=== PATIENT | female | born 1955 | race Caucasian/White ===

== ENCOUNTER 2024-06-15 16:52 | Outpatient (OUT) | payer MEDICARE, BC, SELFPAY ==
--- NOTE | 2024-06-15 17:07 | US_ITS ---
The [place] [id number] Patient Name: MELIDA LIVINGSTON MRN: [id number] date: 1955 Sex: F Assigned Patient Location: [facility] Current Patient Location: Accession/Order Number: [id number] Exam Date: 06/15/2024 17:10 Report Date: 06/16/2024 05:06 At the request of: CARISSA GUTHRIE Procedure: US venous doppler LE LT EXAMINATION: US venous doppler LE LT HISTORY: LEFT LEG PAIN M79.605 COMPARISON: No relevant comparison available. FINDINGS: REGION: Left lower extremity THROMBI: None. COMPRESSIBILITY: Normal compressibility. FLOW: Normal waveform and antegrade flow between 5 and 20 cm/s. OTHER: None. US/US venous doppler LE LT IMPRESSION: 1. No deep vein thrombus within the left lower extremity. Electronically authenticated by: ANTWON YOUNGBLOOD Date: 06/16/2024 05:06
== END 2024-06-15 16:53 | disposition home or self-care (01) ==
PROVIDERS: PCP Nurse Practitioner Family; Visit Provider Nurse Practitioner Family
DX: M79.605 Pain in left leg (principal)
CPT/HCPCS: 93971

== ENCOUNTER 2024-07-11 15:36 | Outpatient (OUT) | payer MEDICARE, BC, SELFPAY ==
--- NOTE | 2024-07-11 15:39 | XR_ITS ---
The [address] [address] Patient Name: MELIDA LIVINGSTON MRN: [id number] date: 1955 Sex: F Assigned Patient Location: [facility] Current Patient Location: Accession/Order Number: [id number] Exam Date: 07/11/2024 15:41 Report Date: 07/12/2024 05:56 At the request of: CARISSA GUTHRIE Procedure: XR foot LT 2V PROCEDURE: XR foot LT 2V HISTORY: Arthritis COMPARISON: None. FINDINGS: BONES:Mild narrowing of the joint space of the first and 5th metatarsophalangeal joints. Mild degenerative enthesopathic spurring of the calcaneus. No fracture or dislocation. SOFT TISSUES:No visible soft tissue swelling. EFFUSION:None visible. OTHER: Negative. XR/XR foot LT 2V IMPRESSION: 1. Mild degenerative changes favoring osteoarthritis. Electronically authenticated by: ANTWON YOUNGBLOOD Date: 07/12/2024 05:56
--- OUTSIDE RECORDS SUMMARY | 2024-07-11 15:41 | XMS_ITS | CCD ---
Author Organization [facility] Inform ion Partnership [facility] Care Team Providers Care Laborer Yard Name Role Phone REQUEST, NONE LISTED Primary Care Unavailable ERIBERTO HOBSON Admitting Unavailable ERIBERTO HOBSON Attending Unavailable IZA CASTRO V Consulting Unavailable TEMO PRIEST Consulting Unavailable ERIBERTO HOBSON Consulting Unavailable Pamela Contreras Unavailable Allergies Allergy Classification Reported Allergen(s) Allergy Type Date of Onset Reaction(s) Facility (1 source) Ibuprofen Drug Allergy 04-16-2016 [facility] Repository Medications Current Medications Medication Drug Class(es) Dates Sig (Normalized) Sig (Original) [id number] 200 actuat albuterol 0.09 mg/actuat metered dose inhaler (1 source) beta2-Adrenergic Agonist Start: 10-01-2021 take 2 puff(s) by inhalation four times daily as needed Albuterol Sulfate HFA 108 (90 Base) MCG/ACT 2 puffs Inhalation qid prn Sep, Active azithromycin 250 mg oral tablet (1 source) Macrolide Antimicrobial Start: 10-01-2021 Zithromax 250 MG 2 tablet on the first day, then 1 tablet daily for 4 days Orally Once a day for 5 day(s) Sep, Active Hydrochlorothiazide -25 mg 25 MG (1 source) Start: 10-01-2021 take 1 tablet by mouth once daily in the morning Hydrochlorothiaz jovita-25 mg 25 MG 1 tablet in the morning Orally Once a day for 30 day(s) Sep, Active lisinopril 10 mg oral tablet (1 source) Angiotensin Converting Enzyme Inhibitor Start: 10-01-2021 take 1 tablet by mouth every twenty-four hours Lisinopril 10 MG 1 tablet Orally Once a day for 30 day(s) Sep, Active 24 hr metoprolol succinate 25 mg extended release oral tablet (1 source) beta-Adrenergic Marlin Start: 10-01-2021 take 1 tablet by mouth every twenty-four hours Metoprolol Succinate ER 25 MG 1 tablet Orally Once a day for 30 day(s) Sep, Active predniSONE 20 mg oral tablet (1 source) Start: 10-01-2021 take 1 tablet by mouth every twelve hours predniSONE 20 MG 1 tablet Orally bid for 5 day(s) Sep, Active Problems Active Problems Problem Classification Problem Date Documented Da te Episodic/Chronic Abdominal pain (5 sources) Epigastric pain; Translations: [Left upper quadrant pain] Onset: 10-28-2018 Episodic Cancer of colon (1 source) Personal history of other malignant neoplasm of large intestine; Translations: [PERS HX OTH MALIG NEOPLSM LG INTEST] Onset: 11-01-2018 Episodic Nausea and vomiting (1 source) Nausea with vomiting, unspecified; Translations: [NAUSEA WITH VOMITING UNSPECIFIED] Onset: 11-01-2018 Episodic Other nutritional; endocrine; and metabolic disorders (1 source) Obesity; Translations: [Obesity, unspecified] Chronic Other nutritional; endocrine; and metabolic disorders (1 source) Obese class II; Translations: [Body mass index (BMI) 36.0-36.9, adult] Chronic Residual codes; unclassified (1 source) Acquired absence of other specified parts of digestive tract; Translations: [ACQ ABSENCE OTH PART DIGESTV TRACT] Onset: 11-01-2018 Episodic Residual codes; unclassified (1 source) Acquired absence of both cervix and uterus; Translations: [ACQUIRED ABSENCE BOTH CERVIX AND UTERUS] Onset: 11-01-2018 Episodic Substance-related disorders (1 source) Nicotine dependence, cigarettes, uncomplicated; Translations: [NICOTINE DEPEND CIGARETTES UNCOMP] Onset: 11-01-2018 Chronic Thyroid disorders (1 source) Non-toxic nodular goiter; Translations: [Nontoxic goiter, unspecified] Chronic Past or Other Problems Problem Classification Problem Date Documented Da te Episodic/Chronic Immunizations and screening for infectious disease (1 source) Contact with and (suspected) exposure to other viral communicable diseases Onset: 10-01-2021 Resolved: 10-01-2021 Episodic Other circulatory disease (1 source) Personal history of other diseases of the circulatory system Onset: 10-01-2021 Resolved: 10-01-2021 Episodic Other screening for suspected conditions (not mental disorders or infectious disease) (1 source) Thyroid function tests abnormal; Translations: [Abnormal results of thyroid function studies] Episodic Viral infection (1 source) COVID-19 Onset: 10-01-2021 Resolved: 10-01-2021 Results Test Name Value Interpretation Reference Range Facil itmian CARDIAC SYD ADMITon 019 CK enzyme act/vol 63 U/L Normal 30-135 [facility] Comment on above: Performed By: #### L IPA, CMP, CMADM #### [facility] [address] [id number] Atulharshad Paulino CK.MB mass conc 1.37 ng/mL Normal <=2.37 [facility] Comment on above: Performed By: #### L IPA, CMP, CMADM #### [facility] [address] [id number] Atul Lora INR Coag RelTime (Bld) SEE BELOW Normal [facility] Comment on above: Result Comment: <0.0 34 ng/ml NEGATIVE 0.034-0.119 INDETERMINATE 0.120 AMI CUT OFF Performed By: #### L IPA, CMP, CMADM #### [facility] [address] [address] Atul Lora NEELAM 36.0 ng/mL Normal <=61.5 [facility] Comment on above: Performed By: #### L IPA, CMP, CMADM #### [facility] [address] [id number] Atul Lora TROP <0.017 Normal <=0.034 [facility] Comment on above: Performed By: #### L IPA, CMP, CMADM #### [facility] [address] [id number] Atul Lora CBC AUTO DIFFon 10-28-2018 Basophils #/vol (Bld) 0.0 103/ul Normal 0.0-0.1 [facility] Comment on above: Performed By: #### C BC #### [facility] [address] [id number] Atul Lora Basophils/100 WBC (Bld) 0.1 % Critically low 0.2-2.0 [facility] Comment on above: Performed By: #### C BC #### [facility] [address] [address] Atul Lora Eosinophils #/vol (Bld) 0.0 103/ul Normal 0.0-0.7 [facility] Comment on above: Performed By: #### C BC #### [facility] [address] [address] Atul Paulino Eosinophils/100 WBC (Bld) 0.1 % Critically low 0.9-7.0 [facility] Comment on above: Performed By: #### C BC #### [facility] [address] [address] Atulharshad Paulino Erythrocyte distribution width Ratio (RBC) 12.5 % Normal 11.0-15.0 [facility] Comment on above: Performed By: #### C BC #### [facility] [address] [address] Atul Paulino Hematocrit Volume Fraction (Bld) 45.7 % Normal 36.0-48.0 [facility] Comment on above: Performed By: #### C BC #### [facility] [address] [address] Atulharshad Paulino Hemoglobin mass conc (Bld) 16.0 g/dL Normal 12.0-16.0 [facility] Comment on above: Performed By: #### C BC #### [facility] [address] [address] Atul Lora IG # 0.05 10e3/ul Critically high 0.00-0.03 [facility] Comment on above: Performed By: #### C BC #### [facility] [address] [address] Atul Lora IG % 0.3 % Normal 0.0-0.5 [facility] Comment on above: Performed By: #### C BC #### [facility] [address] [address] Atul Lora Lymphocytes #/vol (Bld) 1.3 103/ul Normal 1.2-3.8 [facility] Comment on above: Performed By: #### C BC #### [facility] [address] [id number] Atul Paulino Lymphocytes/100 WBC (Bld) 8.7 % Critically low 20.5-60.0 [facility] Comment on above: Performed By: #### C BC #### [facility] [address] [id number] Atul Paulino MANUAL DIFF REQ NO Normal [facility] Comment on above: Performed By: #### C BC #### [facility] [address] [address] Atul Paulino MCH Entitic mass (RBC) 30.6 pg Normal 26.7-34.0 [facility] Comment on above: Performed By: #### C BC #### [facility] [address] [place] [address] Atul Paulino MCHC mass conc (RBC) 35.0 g/dL Normal 29.9-35.2 [facility] Comment on above: Performed By: #### C BC #### [facility] [address] [place] [address] Atul Paulino MCV Entitic volume (RBC) 87.4 fL Normal 81.0-99.0 [facility] Comment on above: Performed By: #### C BC #### [facility] [address] [place] [address] Atul Paulino Monocytes #/vol (Bld) 0.6 103/ul Normal 0.3-0.8 [facility] Comment on above: Performed By: #### C BC #### [facility] [address] [place] [address] Atul Paulino Monocytes/100 WBC (Bld) 4.2 % Normal 1.7-12.0 [facility] Comment on above: Performed By: #### C BC #### [facility] [address] [place], [place] [id number] Atul Lora Neutrophils #/vol (Bld) 13.1 103/ul Critically high 1.4-6.5 [facility] Comment on above: Performed By: #### C BC #### [facility] [address] [place] [address] Atul Paulino Neutrophils/100 WBC (Bld) 86.6 % Critically high 43.0-75.0 [facility] Comment on above: Performed By: #### C BC #### [facility] [address] [place], [place] [id number] Atul Paulino Platelet mean volume Entitic volume (Bld) 8.9 fL Critically low 9.5-13.5 [facility] Comment on above: Performed By: #### C BC #### [facility] [address] [place] [address] Atul Paulino Platelets #/vol (Bld) 384 103/ul Normal 150-450 [facility] Comment on above: Performed By: #### C BC #### [facility] [address] [place] [address] Atul Paulino RBC #/vol (Bld) 5.23 106/ul Normal 4.20-5.40 [facility] Comment on above: Performed By: #### C BC #### [facility] [address] [place] [address] Atul Paulino WBC #/vol (Bld) 15.1 103/ul Critically high 4.0-11.0 [facility] Comment on above: Performed By: #### C BC #### [facility] [address] [place], [place] [id number] Atul Paulino ER URINE PROFILEon 9 Bilirubin mass conc Negative Normal NEGATIVE [facility] Comment on above: Performed By: #### ARMOND WELSH #### [facility] [address] [place], [place] [id number] Atul Paulino BLOOD LARGE Normal NEGATIVE [facility] Comment on above: Performed By: #### ARMOND WELSH #### [facility] [address] [place], [place] [id number] Atul Paulino Clarity Nom (U) CLEAR Normal [facility] Comment on above: Performed By: #### DAYAN WELSHRO #### [facility] [address] [place], [place] [phone] Atulharshad Maravillaen Color Nom (U) YELLOW Normal YELLOW [facility] Comment on above: Performed By: #### ARMOND WELSH #### [facility] [address] [place] [address] Atul Lora ERUAHD A micrscopic examination will be performed if indicated. Normal [facility] Comment on above: Performed By: #### ARMOND WELSH #### [facility] [address] [place] [address] Atul Lora Glucose mass conc Negative Normal NEGATIVE [facility] Comment on above: Performed By: #### ARMOND WELSH #### [facility] [address] [place] [address] Atul Lora Ketones Ql (U) TRACE Normal NEGATIVE [facility] Comment on above: Performed By: #### ARMOND WELSH #### [facility] [address] [place] [address] Atul Lora Nitrite Ql (U) Negative Normal NEGATIVE [facility] Comment on above: Performed By: #### ARMOND WELSH #### [facility] [address] [place] [address] Atul Lora pH (Bld) 5.5 Normal 5-9 [facility] Comment on above: Performed By: #### ARMOND WELSH #### [facility] [address] [place] [address] Atul Lora Protein mass conc (U) 30 mg/dL Normal [facility] Comment on above: Performed By: #### ARMOND WELSH #### [facility] [address] [place] [address] Atul Lora SPEC GRAVITY >=1.030 Normal 1.005-<=1.025 [facility] Comment on above: Performed By: #### ARMOND WELSH #### [facility] [address] [place] [address] Atul Lora UR MICRO IND INDICATED Normal [facility] Comment on above: Performed By: #### ARMOND WELSH #### [facility] [address] [place], [place] [id number] Atul Paulino Urobilinogen Qn (U) 0.2 EU/dl Normal [facility] Comment on above: Performed By: #### ARMOND WELSH #### [facility] [address] [place], [place] [id number] Atul Paulino WBC #/vol (Bld) Negative Normal NEGATIVE [facility] Comment on above: Performed By: #### ARMOND WELSH #### [facility] [address] [id number] Atul Paulino LACTATE/LACTIC ACIDon 2018 Lactate molar conc 1.4 mmol/L Normal 0.7-2.1 [facility] Comment on above: Performed By: #### L ACT #### [facility] [address] [place] [address] Atul Paulino LIPASEon 10-28-2018 Lipase enzyme act/vol 101.0 U/L Normal 23.0-300.0 [facility] Comment on above: Performed By: #### L IPA, CMP, CMADM #### [facility] [address] [place] [address] Atul Paulino PROF 14(COMP METB)on 019 Albumin mass conc 4.2 g/dL Normal 3.5-5.0 [facility] Comment on above: Performed By: #### L IPA, CMP, CMADM #### [facility] [address] [place], [place] [id number] Atul Maravillaen Albumin/Globulin mass ratio 1.0 {ratio} Normal [facility] Comment on above: Performed By: #### L IPA, CMP, CMADM #### [facility] [address] [id number] Atul Lora ALP enzyme act/vol 235 U/L Critically high 38-126 [facility] Comment on above: Performed By: #### L IPA, CMP, CMADM #### [facility] [address] [place] [address] Atulharshad Paulino ALT enzyme act/vol 40 U/L Normal 9-52 [facility] Comment on above: Performed By: #### L IPA, CMP, CMADM #### [facility] [address] [address] Atul Lora Anion gap molar conc 17.1 mmol/L Normal [facility] Comment on above: Performed By: #### L IPA, CMP, CMADM #### [facility] [address] [address] Atul Lora AST enzyme act/vol 17 U/L Normal 14-36 [facility] Comment on above: Performed By: #### L IPA, CMP, CMADM #### [facility] [address] [address] Atul Lora Bilirubin Ql (U) 0.4 mg/dL Normal 0.2-1.3 [facility] Comment on above: Performed By: #### L IPA, CMP, CMADM #### [facility] [address] [address] Atul Lora Calcium mass conc 11.4 mg/dL Critically high 8.4-10.2 [facility] Comment on above: Performed By: #### L IPA, CMP, CMADM #### [facility] [address] [address] Atul Lora Chloride molar conc 100 mmol/L Normal 98-107 [facility] Comment on above: Performed By: #### L IPA, CMP, CMADM #### [facility] [address] [address] Atul Lora CO2 molar conc 23.7 mmol/L Normal 22.0-30.0 [facility] Comment on above: Performed By: #### L IPA, CMP, CMADM #### [facility] [address] [address] Atul Lora Creatinine mass conc 0.76 mg/dL Normal 0.52-1.04 [facility] Comment on above: Performed By: #### L IPA, CMP, CMADM #### [facility] [address] [address] Atul Lora EGFR-AF BANGLADESHI >60 Normal >=60 [facility] Comment on above: Performed By: #### L IPA, CMP, CMADM #### [facility] [address] [address] Atul Lora EGFR-NON AF BANGLADESHI >60 Normal >=60 [facility] Comment on above: Performed By: #### L IPA, CMP, CMADM #### [facility] [address] [address] Atul Lora Globulin mass conc (S) 4.3 g/dL Normal [facility] Comment on above: Performed By: #### L IPA, CMP, CMADM #### [facility] [address] [address] Atul Lora Glucose mass conc 177 mg/dL Critically high 74-106 [facility] Comment on above: Performed By: #### L IPA, CMP, CMADM #### [facility] [address] [address] Atul Lora Potassium molar conc 3.8 mmol/L Normal 3.4-5.0 [facility] Comment on above: Performed By: #### L IPA, CMP, CMADM #### [facility] [address] [address] Atul Lora Protein mass conc 8.5 g/dL Critically high 6.1-8.2 [facility] Comment on above: Performed By: #### L IPA, CMP, CMADM #### [facility] [address] [address] Atul Lora Sodium molar conc 137 mmol/L Normal 137-145 [facility] Comment on above: Performed By: #### L IPA, CMP, CMADM #### [facility] [address] [address] Atul Lora Urea nitrogen mass conc 14.0 mg/dL Normal 7.0-17.0 [facility] Comment on above: Performed By: #### L IPA, CMP, CMADM #### [facility] [address] [address] Atul Lora Urea nitrogen/Creatinine mass ratio 18.4 mg/mg Normal [facility] Comment on above: Performed By: #### L IPA, CMP, CMADM #### [facility] [address] [place], [place] [id number] Atul Lora PROTIMEon 10-28-2018 INR Coag RelTime (PPP) 0.95 {INR} Normal [facility] Comment on above: Performed By: #### P TT, PT #### [facility] [address] [place] [address] Atul Lora Prothrombin time (PT) Coag time (PPP) SEE BELOW Normal [facility] Comment on above: Result Comment: PADMINI RED INR: 2.0 - 3.0 CONDITIONS NOT LISTED BELOW 2.5 - 3.5 FOR PROSTHETIC HEART VALVE REPLACEMENT 2.5 - 3.5 RECURRENT THROMBOSIS Performed By: #### P TT, PT #### [facility] [address] [place] [address] Atul Lora Prothrombin time (PT) Coag time (PPP) 9.8 s Normal 9.0-11.6 [facility] Comment on above: Performed By: #### P TT, PT #### [facility] [address] [place] [address] Atul Lora Prothrombin time (PT) Coag time (PPP) PLEASE NOTE: NORMAL RANGE CHANGE 06-29-2014 DUE TO REAGENT LOT CHANGE Normal [facility] Comment on above: Performed By: #### P TT, PT #### [facility] [address] [place] [address] Atul Lora PTTon 10-28-2018 aPTT Coag time (Bld) PLEASE NOTE: NORMAL RANGE CHANGE 09-05-2015 DUE TO REAGENT LOT CHANGE Normal [facility] Comment on above: Performed By: #### P TT, PT #### [facility] [address] [place] [address] Atul Lora aPTT Coag time (Bld) 24.0 s Normal 22.3-36.2 [facility] Comment on above: Performed By: #### P TT, PT #### [facility] [address] [place] [address] Atul Lora URINE MICROSCOPIC ONLYon Bacteria LM.HPF #/area (Urine sed) TRACE Normal NONE SEEN [facility] Comment on above: Performed By: #### ARMOND WELSH #### [facility] [address] [place] [address] Atul Lora CA OX CRYSTALS MANY Normal [facility] Comment on above: Performed By: #### DAYAN WELSHRO #### [facility] [address] [place] [address] Atul Lora CAST NONE SEEN Normal NONE SEEN [facility] Comment on above: Performed By: #### DAYAN WELSHRO #### [facility] [address] [place] [address] Atul Lora Crystals LM Nom (Urine sed) SEEN Normal NONE SEEN [facility] Comment on above: Performed By: #### ARMOND WELSH #### [facility] [address] [place] [address] Atul Lora CULTURE NOT INDICATED Normal [facility] Comment on above: Performed By: #### ARMOND WELSH #### [facility] [address] [place] [address] Atul Lora Epithelial cells LM.HPF #/area (Urine sed) FEW Normal [facility] Comment on above: Performed By: #### ARMOND WELSH #### [facility] [address] [place] [address] Atul Lora MUCOUS NONE SEEN Normal NONE SEEN [facility] Comment on above: Performed By: #### ARMOND WELSH #### [facility] [address] [place] [address] Atul Lora RBC #/vol (U) 0-2 Normal 0-2 [facility] Comment on above: Performed By: #### DAYAN WELSHRO #### [facility] [address] [place] [address] Atul Lora WBC #/vol (Bld) 0-2 Normal NONE SEEN [facility] Comment on above: Performed By: #### ARMOND WELSH #### [facility] [address] [place] [address] Atul Lora XR ABD FLAT UP/PA Blaire 10-28 XR ABD FLAT UP/PA [address] [place] [address] Patient: MELIDA LIVINGSTON Exam Date: 10/28/2018 : 1955 Gender:F Ordering : TAO BURGER Admission #: [id number] Family : DR ERIBERTO HOBSON . Order #: [id number] CLICK HERE TO VIEW EXAM RADIOLOGY REPORT PROCEDURE: RADIOGRAPH ABDOMEN FLAT/UPRIGHT AND PA CHEST COMPARISON: None. INDICATIONS: Acute vomiting, with right and left lower quadrant abdominal pain FINDINGS: LUNGS: Mild right basilar opacity. The left lung is clear MEDIASTINUM: No abnormal widening. BOWEL GAS PATTERN: Scattered air-fluid levels. Paucity of air throughout the bowel FREE AIR: None. CALCIFICATIONS: None significant. BONES: No fracture or visible bone lesion. OTHER: Negative. CONCLUSION: 1. Mild right basilar opacity, atelectasis versus pneumonia 2. Paucity of bowel gas, indeterminate bowel gas pattern Dictated by: Iza Castro M.D. on 10/28/2018 at 18:02 Approved by: Iza Castro M.D. on 10/28/2018 at 18:04 Normal [facility] Vital Signs Date Time Vital Sign Value Performing Clinician Facility 10-01-2021 15:15-0500 Body height 167.64 cm Pamela Contreras Other [facility] Other 10-01-2021 15:15-0500 Body mass index (BMI) [Ratio] 29.05 kg/m2 Pamela Contreras Other [facility] Other 10-01-2021 15:15-0500 Body temperature 97.1 [degF] Pamela Contreras Other [facility] Other 10-01-2021 15:15-0500 Body weight 81.65 kg Pamela Contreras Other [facility] Other 10-01-2021 15:15-0500 SaO2% (BldA) [Mass fraction] 90 % Pamela Contreras Other [facility] Other Encounters Encounter Date Encounter Type Care Provider Facility Start: 10-01-2021 (URG) Urgent Care Visit Pamela vázquez [facility] Start: 10-01-2021 End: 10-01-2021 ambulatory Pamela Contreras Other [facility] Other Start: 10-28-2018 End: 10-28-2018 Patient encounter procedure NONE LISTED REQUEST Facility: Payers Date Payer Category Payer Self-pay 1955 Unknown [id number] [facility] [id number] Medicare [id number] 2.1 [id number] Social History Date Type Detail Facility Sex Assigned At [facility] Other Evaluation note 10-01-2021 Note Date & Type Note Facility 10-01-2021 Evaluation note Encounter Date Diagnosis Assessment Notes Sep, Contact with and (suspected) exposure to other viral communicable diseases (ICD-10 - Z20.828) Sep, COVID-19 (ICD-10 - U07.1) Drink plenty of fluids, get plenty of rest. Take the prednisone as prescribed until gone. Take the Zithromax as prescribed until gone. Use the albuterol inhaler as prescribed as needed for cough or shortness of breath. Take the hydrochlorothia zide, lisinopril, metoprolol as prescribed daily until you follow-up with your new PCP for reevaluation of your hypertension. Sep, History of hypertension (ICD-10 - Z86.79) Patient reports her primary care physician retired and she has been off of her blood pressure medicine for a few months, is due to see a new primary care physician at the beginning of the year. Sep, Other Additional time spent conducting pre-visit phone call, screening for symptoms, instructions on social distancing, application and removal of PPE, and cleaning of examination room, equipment and supplies was preformed. Patient education given for testing methodology and results. Patient care instructions given in writting by [facility] document. [employer] Other History general Narrative - Reported Note Date & Type Note Facility History general Narrative - Reported Type Medical History hypertension Medical History Arthritis Medical History colon cancer Medical History thyroid disease Surgical History gall bladder Surgical History hysterectomy Surgical History colon resection Hospitalization History see above [employer] Other Summary Purpose Family History No Family History Records Found Advance Directives No Advanced Directives Records Found Additional Source Comments INFORMATION SOURCE (unrecogn ized section and content) DATE CREATED AUTHOR 11/09/2018 The Bryan Alisa whatley REASON FOR VISIT (unrecogniz ed section and content) #22 BLUE SILVA, CHEST CONGEST ION X3 DAYS FOR RECORDS PERTAINING TO PATIENTS WHO ARE OR HAVE BEEN ENROLLED IN A CHEMICAL DEPENDENCY/SUBSTANCEABUSE PROGRAM, SOME INFORMATION MAY BE OMITTED. This clinical summary was aggregated from multiple sources. Caution should be exercised in using it in the provision of clinical care. This summary normalizes information from multiple sources, and as a consequence, information in this document may materially change the coding, format and clinical context of patient data. In addition, data may be omitted in some cases. CLINICAL DECISIONS SHOULD BE BASED ON THE PRIMARY CLINICAL RECORDS. [employer] provides no warranty or guarantee of the accuracy or completeness of information in this document.
== END 2024-07-11 15:37 | disposition home or self-care (01) ==
LOC: RAD 15:36
PROVIDERS: PCP Nurse Practitioner Family; Visit Provider Nurse Practitioner Family
DX: M19.90 Unspecified osteoarthritis, unspecified site (principal); M77.32 Calcaneal spur, left foot
CPT/HCPCS: 73620

== ENCOUNTER 2025-01-09 16:27 | Outpatient (OUT) | payer MEDICARE, BC, SELFPAY ==
[2025-01-09 16:40] LABS: Basophils Percent Auto 0.1 % (0.2-2.0); Eosinophils Absolute Auto 0.1 10^3/uL (0.0-0.7); Eosinophils Percent Auto 1.2 % (0.9-7.0); Hematocrit 36.2 % (36.0-48.0); Hemoglobin 12.1 g/dL (12.0-16.0); Immature Granulocytes Abs Auto 0.01 10^3/uL (0.00-0.03); Immature Granulocytes Pct Auto 0.1 % (0.0-0.5); Lymphocytes Absolute Auto 1.9 10^3/uL (1.2-3.8); Lymphocytes Percent Auto 23.4 % (20.5-60.0); Mean Corpuscular HGB Conc 33.4 g/dL (29.9-35.2); Mean Corpuscular Hemoglobin 31.3 pg (26.7-34.0); Mean Corpuscular Volume 93.5 fL (81.0-99.0); Mean Platelet Volume 8.8 fL (9.5-13.5); Monocytes Absolute Auto 0.7 10^3/uL (0.3-0.8); Monocytes Percent Auto 9.1 % (1.7-12.0); Neutrophils Absolute Auto 5.4 10^3/uL (1.4-6.5); Neutrophils Percent Auto 66.1 % (43.0-75.0); Platelet Count 275 10^3/uL (150-450); Red Blood Count 3.87 10^6/uL (4.20-5.40); Red Cell Distribution Width 12.7 % (11.0-15.0); White Blood Count 8.1 10^3/uL (4.0-11.0)
--- OUTSIDE RECORDS SUMMARY | 2025-01-09 16:50 | XMS_ITS | CCD ---
Author Organization [facility] Inform ion Partnership [facility] Care Team Providers Care Bridge Ironworker Name Role Phone REQUEST, NONE LISTED Primary Care Unavailable ERIBERTO HOBSON Admitting Unavailable ERIBERTO HOBSON Attending Unavailable IZA CASTRO V Consulting Unavailable TEMO PRIEST Consulting Unavailable ERIBERTO HOBSON Consulting Unavailable Pamela Contreras Unavailable Allergies Allergy Classification Reported Allergen(s) Allergy Type Date of Onset Reaction(s) Facility (1 source) Ibuprofen Drug Allergy 04-16-2016 [facility] Rep[facility] Medications Current Medications Medication Drug Class(es) Dates Sig (Normalized) Sig (Original) [id number] 200 actuat albuterol 0.09 mg/actuat metered dose [...] enzyme act/vol 63 U/L Normal 30-135 [facility] Comment on above: Performed By: #### L IPA, CMP, CMADM #### [facility] [address] [id number] Atulharshad Paulino CK.MB mass conc 1.37 ng/mL Normal <=2.37 [facility] Comment on above: Performed By: #### L IPA, CMP, CMADM #### [facility] [address] [id number] Atul Lora INR Coag RelTime (Bld) SEE BELOW Normal [facility] Comment on above: Result Comment: <0.0 34 ng/ml NEGATIVE 0.034-0.119 INDETERMINATE 0.120 AMI CUT OFF Performed By: #### L IPA, CMP, CMADM #### [facility] [address] [address] Atul Lora NEELAM 36.0 ng/mL Normal <=61.5 [facility] Comment on above: Performed By: #### L IPA, CMP, CMADM #### [facility] [address] [id number] Atul Lora TROP <0.017 Normal <=0.034 [facility] Comment on above: Performed By: #### L IPA, CMP, CMADM #### [facility] [address] [address] Atul Lora CBC AUTO DIFFon 10-28-2018 Basophils #/vol (Bld) 0.0 103/ul Normal 0.0-0.1 [facility] Comment on above: Performed By: #### C BC #### [facility] [address] [address] Atul Lora Basophils/100 WBC (Bld) 0.1 % Critically low 0.2-2.0 [facility] Comment on above: Performed By: #### C BC #### [facility] [address] [address] Atul Lora Eosinophils #/vol (Bld) 0.0 103/ul Normal 0.0-0.7 [facility] Comment on above: Performed By: #### C BC #### [facility] [address] [address] Atul Paulino Eosinophils/100 WBC (Bld) 0.1 % Critically low 0.9-7.0 [facility] Comment on above: Performed By: #### C BC #### [facility] [address] [address] Atulharshad Paulino Erythrocyte distribution width Ratio (RBC) 12.5 % Normal 11.0-15.0 [facility] Comment on above: Performed By: #### C BC #### [facility] [address] [address] Atul Paulino Hematocrit Volume Fraction (Bld) 45.7 % Normal 36.0-48.0 [facility] Comment on above: Performed By: #### C BC #### [facility] [address] [address] Atulharshad Paulino Hemoglobin mass conc (Bld) 16.0 g/dL Normal 12.0-16.0 [facility] Comment on above: Performed By: #### C BC #### [facility] [address] [address] Atul Lora IG # 0.05 10e3/ul Critically high 0.00-0.03 [facility] Comment on above: Performed By: #### C BC #### [facility] [address] [address] Atul Lora IG % 0.3 % Normal 0.0-0.5 [facility] Comment on above: Performed By: #### C BC #### [facility] [address] [address] Atul Lora Lymphocytes #/vol (Bld) 1.3 103/ul Normal 1.2-3.8 [facility] Comment on above: Performed By: #### C BC #### [facility] [address] [address] Atul Paulino Lymphocytes/100 WBC (Bld) 8.7 % Critically low 20.5-60.0 [facility] Comment on above: Performed By: #### C BC #### [facility] [address] [address] Atul Paulino MANUAL DIFF REQ NO Normal [facility] Comment on above: Performed By: #### C BC #### [facility] [address] [address] Atul Paulino MCH Entitic mass (RBC) 30.6 pg Normal 26.7-34.0 [facility] Comment on above: Performed By: #### C BC #### [facility] [address] [place] [address] Atul Paulino MCHC mass conc (RBC) 35.0 g/dL Normal 29.9-35.2 [facility] Comment on above: Performed By: #### C BC #### [facility] [address] [place] [address] Atul Paulino MCV Entitic volume (RBC) 87.4 fL Normal 81.0-99.0 [facility] Comment on above: Performed By: #### C BC #### [facility] [address] [place] [address] Atul Paulino Monocytes #/vol (Bld) 0.6 103/ul Normal 0.3-0.8 [facility] Comment on above: Performed By: #### C BC #### [facility] [address] [place] [address] Atul Paulino Monocytes/100 WBC (Bld) 4.2 % Normal 1.7-12.0 [facility] Comment on above: Performed By: #### C BC #### [facility] [address] [place], [place] [id number] Autl Lora Neutrophils #/vol (Bld) 13.1 103/ul Critically high 1.4-6.5 [facility] Comment on above: Performed By: #### C BC #### [facility] [address] [place] [address] Atul Paulino Neutrophils/100 WBC (Bld) 86.6 % Critically high 43.0-75.0 [facility] Comment on above: Performed By: #### C BC #### [facility] [address] [place], [place] [id number] Atul Paulino Platelet mean volume Entitic volume (Bld) 8.9 fL Critically low 9.5-13.5 [facility] Comment on above: Performed By: #### C BC #### [facility] [address] [place] [address] Atul Paulino Platelets #/vol (Bld) 384 103/ul Normal 150-450 [facility] Comment on above: Performed By: #### C BC #### [facility] [address] [place] [address] Atul Paulino RBC #/vol (Bld) 5.23 106/ul Normal 4.20-5.40 [facility] Comment on above: Performed By: #### C BC #### [facility] [address] [place] [address] Atul Paulino WBC #/vol (Bld) 15.1 103/ul Critically high 4.0-11.0 [facility] Comment on above: Performed By: #### C BC #### [facility] [address] [place], [place] [id number] Atul Paulino ER URINE PROFILEon 9 Bilirubin mass conc Negative Normal NEGATIVE [facility] Comment on above: Performed By: #### ARMOND WELSH #### [facility] [address] [place], [place] [id number] Atul Paulnio BLOOD LARGE Normal NEGATIVE [facility] Comment on above: Performed By: #### ARMOND WELSH #### [facility] [address] [place], [place] [id number] Atul Paulino Clarity Nom (U) CLEAR Normal [facility] Comment on above: Performed By: #### DAYAN WELSHRO #### [facility] [address] [place], [place] [id number] Atulharshad Maravillaen Color Nom (U) YELLOW Normal YELLOW [facility] Comment on above: Performed By: #### ARMOND WELSH #### [facility] [address] [place] [address] Atul Lora ERUAHD A micrscopic examination will be performed if indicated. Normal [facility] Comment on above: Performed By: #### ARMOND WELSH #### [facility] [address] [place] [address] Atul Lora Glucose mass conc Negative Normal NEGATIVE [facility] Comment on above: Performed By: #### ARMOND WELSH #### [facility] [address] [place] [address] Atul Lora Ketones Ql (U) TRACE Normal NEGATIVE [facility] Comment on above: Performed By: #### ARMOND WELSH #### [facility] [address] [place] [address] Atul Lora Nitrite Ql (U) Negative Normal NEGATIVE [facility] Comment on above: Performed By: #### ARMOND WELSH #### [facility] [address] [place] [address] Atul Lora pH (Bld) 5.5 Normal 5-9 [facility] Comment on above: Performed By: #### ARMOND WELSH #### [facility] [address] [place] [address] Atul Lora Protein mass conc (U) 30 mg/dL Normal [facility] Comment on above: Performed By: #### ARMOND WELSH #### [facility] [address] [place] [address] Atul Lora SPEC GRAVITY >=1.030 Normal 1.005-<=1.025 [facility] Comment on above: Performed By: #### ARMOND WELSH #### [facility] [address] [place] [address] Atul Lora UR MICRO IND INDICATED Normal [facility] Comment on above: Performed By: #### ARMOND WELSH #### [facility] [address] [place], [place] [id number] Atul Paulino Urobilinogen Qn (U) 0.2 EU/dl Normal [facility] Comment on above: Performed By: #### ARMOND WELSH #### [facility] [address] [place], [place] [id number] Atul Paulino WBC #/vol (Bld) Negative Normal NEGATIVE [facility] Comment on above: Performed By: #### ARMOND WELSH #### [facility] [address] [id number] Atul Paulino LACTATE/LACTIC ACIDon 2018 Lactate molar conc 1.4 mmol/L Normal 0.7-2.1 [facility] Comment on above: Performed By: #### L ACT #### [facility] [address] [place] [address] Atul Paulino LIPASEon 10-28-2018 Lipase enzyme act/vol 101.0 U/L Normal 23.0-300.0 [facility] Comment on above: Performed By: #### L IPA, CMP, CMADM #### [facility] [address] [place] [address] Atul Paulino PROF 14(COMP METB)on 019 Albumin mass conc 4.2 g/dL Normal 3.5-5.0 [facility] Comment on above: Performed By: #### L IPA, CMP, CMADM #### [facility] [address] [place], [place] [id number] Atul Maravillaen Albumin/Globulin mass ratio 1.0 {ratio} Normal [facility] Comment on above: Performed By: #### L IPA, CMP, CMADM #### [facility] [address] [address] Atul Lora ALP enzyme act/vol 235 U/L Critically high 38-126 T [facility] Comment on above: Performed By: #### L IPA, CMP, CMADM #### [facility] [address] [place] [address] Atulharshad Paulino ALT enzyme act/vol 40 U/L Normal 9-52 [facility] Comment on above: Performed By: #### L IPA, CMP, CMADM #### [facility] [address] [address] Atul Lora Anion gap molar conc 17.1 mmol/L Normal [facility] Comment on above: Performed By: #### L IPA, CMP, CMADM #### [facility] [address] [address] Atul Lora AST enzyme act/vol 17 U/L Normal 14-36 [facility] Comment on above: Performed By: #### L IPA, CMP, CMADM #### [facility] [address] [address] Atul Lora Bilirubin Ql (U) 0.4 mg/dL Normal 0.2-1.3 [facility] Comment on above: Performed By: #### L IPA, CMP, CMADM #### [facility] [address] [address] Atul Lora Calcium mass conc 11.4 mg/dL Critically high 8.4-10.2 [facility] Comment on above: Performed By: #### L IPA, CMP, CMADM #### [facility] [address] [address] Atul Lroa Chloride molar conc 100 mmol/L Normal 98-107 [facility] Comment on above: Performed By: #### L IPA, CMP, CMADM #### [facility] [address] [address] Atul Lora CO2 molar conc 23.7 mmol/L Normal 22.0-30.0 [facility] Comment on above: Performed By: #### L IPA, CMP, CMADM #### [facility] [address] [address] Atul Lora Creatinine mass conc 0.76 mg/dL Normal 0.52-1.04 [facility] Comment on above: Performed By: #### L IPA, CMP, CMADM #### [facility] [address] [address] Atul Lora EGFR-AF MAURITIAN >60 Normal >=60 [facility] Comment on above: Performed By: #### L IPA, CMP, CMADM #### [facility] [address] [address] Atul Lora EGFR-NON AF MAURITIAN >60 Normal >=60 [facility] Comment on above: Performed By: #### L IPA, CMP, CMADM #### [facility] [address] [address] Atul Lora Globulin mass conc (S) 4.3 g/dL Normal [facility] Comment on above: Performed By: #### L IPA, CMP, CMADM #### [facility] [address] [address] Atul Lora Glucose mass conc 177 mg/dL Critically high 74-106 [facility] Comment on above: Performed By: #### L IPA, CMP, CMADM #### [facility] [address] [address] Atul Lora Potassium molar conc 3.8 mmol/L Normal 3.4-5.0 [facility] Comment on above: Performed By: #### L IPA, CMP, CMADM #### [facility] [address] [address] Atul Lora Protein mass conc 8.5 g/dL Critically high 6.1-8.2 [facility] Comment on above: Performed By: #### L IPA, CMP, CMADM #### [facility] [address] [address] Atul Lora Sodium molar conc 137 mmol/L Normal 137-145 [facility] Comment on above: Performed By: #### L IPA, CMP, CMADM #### [facility] [address] [address] Atul Lora Urea nitrogen mass conc 14.0 mg/dL Normal 7.0-17.0 [facility] Comment on above: Performed By: #### L IPA, CMP, CMADM #### [facility] [address] [address] Atul Lora Urea nitrogen/Creatinine mass ratio 18.4 mg/mg Normal [facility] Comment on above: Performed By: #### L IPA, CMP, CMADM #### [facility] [address] [place], [place] [id number] Atul Lora PROTIMEon 10-28-2018 INR Coag RelTime (PPP) 0.95 {INR} Normal [facility] Comment on above: Performed By: #### P TT, PT #### [facility] [address] [place] [address] Atul Lora Prothrombin time (PT) Coag time (PPP) SEE BELOW Normal [facility] Comment on above: Result Comment: PADMINI RED INR: 2.0 - 3.0 CONDITIONS NOT LISTED BELOW 2.5 - 3.5 FOR PROSTHETIC HEART VALVE REPLACEMENT 2.5 - 3.5 RECURRENT THROMBOSIS Performed By: #### P TT, PT #### [facility] [address] [place] [address] Atul Lora Prothrombin time (PT) Coag time (PPP) 9.8 s Normal 9.0-11.6 [facility] Comment on above: Performed By: #### P TT, PT #### [facility] [address] [place] [address] Atul Lora Prothrombin time (PT) Coag time (PPP) PLEASE NOTE: NORMAL RANGE CHANGE 06-29-2014 DUE TO REAGENT LOT CHANGE Normal [facility] Comment on above: Performed By: #### P TT, PT #### [facility] [address] [place] [address] Atul Lora PTTon 10-28-2018 aPTT Coag time (Bld) PLEASE NOTE: NORMAL RANGE CHANGE 09-05-2015 DUE TO REAGENT LOT CHANGE Normal [facility] Comment on above: Performed By: #### P TT, PT #### [facility] [address] [place] [address] Atul Lora aPTT Coag time (Bld) 24.0 s Normal 22.3-36.2 [facility] Comment on above: Performed By: #### P TT, PT #### [facility] [address] [place] [address] Atul Lora URINE MICROSCOPIC ONLYon Bacteria LM.HPF #/area (Urine sed) TRACE Normal NONE SEEN [facility] Comment on above: Performed By: #### ARMOND WELSH #### [facility] [address] [place] [address] Atul Lora CA OX CRYSTALS MANY Normal [facility] Comment on above: Performed By: #### DAYAN WELSHRO #### [facility] [address] [place] [address] Atul Lora CAST NONE SEEN Normal NONE SEEN [facility] Comment on above: Performed By: #### DAYAN WELSHRO #### [facility] [address] [place] [address] Atul Lora Crystals LM Nom (Urine sed) SEEN Normal NONE SEEN [facility] Comment on above: Performed By: #### ARMOND WELSH #### [facility] [address] [place] [address] Atul Lora CULTURE NOT INDICATED Normal [facility] Comment on above: Performed By: #### ARMOND WELSH #### [facility] [address] [place] [address] Atul Lora Epithelial cells LM.HPF #/area (Urine sed) FEW Normal [facility] Comment on above: Performed By: #### ARMOND WELSH #### [facility] [address] [place] [address] Atul Lora MUCOUS NONE SEEN Normal NONE SEEN [facility] Comment on above: Performed By: #### ARMOND WELSH #### [facility] [address] [place] [address] Atul Lora RBC #/vol (U) 0-2 Normal 0-2 [facility] Comment on above: Performed By: #### DAYAN WELSHRO #### [facility] [address] [place] [address] Atul Lora WBC #/vol (Bld) 0-2 Normal NONE SEEN [facility] Comment on above: Performed By: #### ARMOND WELSH #### [facility] [address] [place] [address] Atul Lora XR ABD FLAT UP/PA Blaire 10-28 XR ABD FLAT UP/PA [address] [place] [address] Patient: MELIDA LIVINGSTON Exam Date: 10/28/2018 : 1955 Gender:F Ordering : TAO BURGER Admission #: [id number] Family : DR ERIBERTO HOBSON . Order #: [id number] CLICK HERE TO VIEW EXAM RADIOLOGY REPORT [...] Castro M.D. on 10/28/2018 at 18:04 Normal [facility] Vital Signs Date Time Vital Sign Value Performing Clinician Facility 10-01-2021 15:15-0500 Body height 167.64 cm Pamela Contreras Other [facility] Other 10-01-2021 15:15-0500 Body mass index (BMI) [Ratio] 29.05 kg/m2 Pamela Contreras Other [facility] Other 10-01-2021 15:15-0500 Body temperature 97.1 [degF] Pamela Contreras Other [facility] Other 10-01-2021 15:15-0500 Body weight 81.65 kg Pamela Contreras Other [facility] Other 10-01-2021 15:15-0500 SaO2% (BldA) [Mass fraction] 90 % Pamela Contreras Other [facility] [facility] Other Encounters Encounter Date Encounter Type Care Provider Facility Start: 10-01-2021 (URG) Urgent Care Visit Pamela vázquez [facility] Start: 10-01-2021 End: 10-01-2021 ambulatory Pamela Contreras Other [facility] [employer] Other Start: 10-28-2018 End: 10-28-2018 Patient encounter procedure NONE LISTED REQUEST Facility: Payers Date Payer Category Payer Self-pay 1955 Unknown [id number] [facility] [id number] Medicare [id number] 2.1 [id number] Social History Date Type Detail Facility Sex Assigned At [facility] Other Evaluation note 10-01-2021 Note Date & [...] Patient care instructions given in writting by [facility] document. [facility] Other History general Narrative - Reported Note Date & Type Note Facility History general Narrative - Reported Type Medical History hypertension Medical History Arthritis Medical History colon cancer Medical History thyroid disease Surgical History gall bladder Surgical History hysterectomy Surgical History colon resection Hospitalization History see above [facility] Other Summary Purpose Family History No Family [...] BE BASED ON THE PRIMARY CLINICAL RECORDS. [address] provides no warranty or guarantee of the accuracy or completeness of information in this document.
[2025-01-09 17:12] LABS: Alanine Aminotransferase 25 U/L (14-59); Albumin Globulin Ratio 0.8; Albumin Level 3.1 g/dL (3.4-5.0); Alkaline Phosphatase 204 U/L (46-116); Anion Gap 9.2; Aspartate Amino Transferase 21 U/L (15-37); BUN Creatinine Ratio 14.9; Bilirubin Total 0.2 mg/dL (0.2-1.0); Calcium 9.6 mg/dL (8.5-10.1); Carbon Dioxide 30.3 mmol/L (21.0-32.0); Chloride 107 mmol/L (98-107); Estimated GFR (African America >60 (>=60 mL/min/1.73m^2); Estimated GFR (Non-African Ame >60 (>=60 mL/min/1.73m^2); Globulin 3.8 g/dL; Glucose 120 mg/dL (74-106); Potassium 3.5 mmol/L (3.5-5.1); Sodium 143 mmol/L (136-145); Thyroid Stimulating Hormone 0.818 uIU/mL (0.358-3.740); Total Protein 6.9 g/dL (6.4-8.2)
[2025-01-09 18:08] LABS: Free T4 1.19 ng/dL (0.76-1.46)
== END 2025-01-09 16:28 | disposition home or self-care (01) ==
LOC: LAB 16:28
PROVIDERS: PCP Nurse Practitioner Family; Visit Provider Family Medicine
DX: J44.9 Chronic obstructive pulmonary disease, unspecified (principal); E03.9 Hypothyroidism, unspecified; I50.30 Unspecified diastolic (congestive) heart failure; R53.83 Other fatigue; I11.0 Hypertensive heart disease with heart failure
CPT/HCPCS: 36415; 80053; 83880; 84439; 84443; 85025

== ENCOUNTER 2025-01-11 12:26 | Outpatient (OUT) | payer MEDICARE, BC, SELFPAY ==
--- NOTE | 2025-01-11 12:30 | XR_ITS ---
The [address] [address] Patient Name: MELIDA LIVINGSTON MRN: [id number] date: 1955 Sex: F Assigned Patient Location: [facility] Current Patient Location: [facility] Accession/Order Number: [id number] Exam Date: 01/11/2025 13:18 Report Date: 01/11/2025 13:19 At the request of: KONG UNGER MD Procedure: XR chest 2V Plain film chest 2 view HISTORY: Cough and shortness of breath for 6 weeks COMPARISON: None FINDINGS: SUPPORT DEVICES: None POSTSURGICAL CHANGES: None HEART: Within normal limits PULMONARY WARREN: Within normal limits MEDIASTINUM: Unremarkable LUNGS AND PLEURA: No acute lung process, pleural effusion or pneumothorax identified. Mild interstitial changes BONY STRUCTURES: Thoracic spondylosis ADDITIONAL FINDINGS None XR/XR chest 2V IMPRESSION: No acute process. Impression dictated by: Brent Clark M.D.01/11/2025 1:19 PM Dictation Location: [employer] Electronically authenticated by: [id number] Y Date: 01/11/2025 13:19
== END 2025-01-11 12:27 | disposition home or self-care (01) ==
LOC: RAD 12:27
PROVIDERS: PCP Nurse Practitioner Family; Visit Provider Family Medicine
DX: J44.9 Chronic obstructive pulmonary disease, unspecified (principal)
CPT/HCPCS: 71046

== ENCOUNTER 2025-03-03 13:16 | Outpatient (OUT) | payer MEDICARE, BC, SELFPAY ==
--- NOTE | 2025-03-03 14:00 | CA_ITS ---
Patient Name: MELIDA LIVINGSTON MR#: [id number] : 1955 Exam Date: 03/03/2025 Ordering Doctor: DR KONG UNGER . ECHOCARDIOGRAM REPORT PROCEDURE: CA ECHO DOPPLER COMPLETE INDICATIONS: Murmur, COPD, hypertension COMPARISON: None. DESCRIPTION: COMPLETE ECHOCARDIOGRAM Real-time transthoracic echocardiography with 2D, M-mode, spectral and color flow Doppler performed. QUALITY: Technical quality was good. LEFT VENTRICLE: Normal chamber size. Mild concentric left ventricular hypertrophy D-shaped septum consistent with right ventricular pressure and volume overload. LV EF: Global left ventricular systolic function is normal; visually estimated ejection fraction is 55 to 60%. No wall motion abnormalities. DIASTOLIC: Grade II diastolic dysfunction. ATRIAL SEPTUM: Visually appears intact. LEFT ATRIUM: Moderate dilatation. RIGHT ATRIUM: Normal chamber size. RIGHT VENTRICLE: Normal chamber size. Normal systolic function. TRICUSPID VALVE: Normal mobility and thickness. No stenosis with trivial regurgitation. Doppler studies reveal moderately (45-60) elevated right sided pressures. RVSP 56 mmHg MITRAL VALVE: Normal mobility and thickness. No evidence of mitral valve stenosis. Moderate, nodular, mitral annular calcification. Trivial mitral regurgitation. AORTIC VALVE: Normal trileaflet appearance. Mildly calcified aortic valve. Normal leaflet mobility. No evidence of aortic valve stenosis. No aortic regurgitation. AORTIC ROOT: Normal diameter and appearance. Ascending aorta is normal in size. PULMONIC VALVE: Normal thickness and mobility. No stenosis. Trivial regurgitation. PERICARDIUM: No evidence of pericardial effusion. IVC: IVC is dilated (3.1 cm), does not fully collapse. CONCLUSION: 1. Global left ventricular systolic function is normal; visually estimated ejection fraction is 55 to 60% 2. Mild left ventricular hypertrophy 3. D-shaped septum consistent with right ventricular pressure and ongoing overload 4. Normal right ventricular size and systolic function 5. Grade 2 diastolic dysfunction 6. The left atrium is moderately dilated 7. Moderately elevated right sided pressures; RVSP 56 mmHg 8. No significant valvular abnormalities Adult Echocardiography Procedure Report Left Ventricle LVEDD (3.7 - 5.6 cm): 4.62 cm LVESD (2.2 - 4.0 cm): 3.07 cm LVIVS thickness (0.6 - 1.2 cm): 1.23 cm LVPW thickness (0.5 - 1.0 cm): 1.18 cm e': 0.09 m/s E - e': 10.84 LVOT Max Gradient: 2.74 mm[Hg] LVOT Area (cm2): 0.83 m/s Peak Velocity (LVOT): 0.83 m/s Mean Velocity (LVOT): 0.54 m/s LVOT Diameter 2.39 cm Left Ventricular Ejection Fraction: Left Atrium LA Volume Index (2D A2C): 45.72 ml/m2 Left Atrium Systolic Dimension: 4.81 cm Mitral Valve MV E to A Ratio: 0.92 MV Max Gradient: MV Mean Gradient: Mitral Valve A-Wave Peak Velocity: 1.02 m/s Mitral Valve E-Wave Peak Velocity: 0.94 m/s Cardiovascular Orifice Area: Right Ventricle RV Internal Diastolic Dimension: Aorta AO Root Diam: 3.33 cm Ascending Ao Diam: 2.89 cm Aortic Valve AoV Area (Peak Travis): 2.30 cm2, 2.30 cm2 AoV Area (VTI): 2.56 cm2, 2.56 cm2 Deceleration Carver: Pressure Half-Time: Peak Velocity(Antegrade Flow): 1.61 m/s Peak Gradient(Antegrade Flow): 10.36 mm[Hg] Mean Velocity(Antegrade Flow): 0.98 m/s Mean Gradient(Antegrade Flow): 4.65 mm[Hg] Velocity Time Integral: 33.85 cm Tricuspid Valve Peak Velocity (Regurgitant Flow): 3.22 m/s Peak Velocity: Pulmonic Valve Mean Gradient: 3.23 mm[Hg] Mean Velocity: 0.85 m/s Peak Velocity: 1.25 m/s, 1.18 m/s Peak Gradient: 6.20 mm[Hg], 5.58 mm[Hg] Right Atrium Right Atrium Systolic Pressure: 31.05 ml, 31.05 ml Dictated by: Guilherme Bazan M.D. on 03/03/2025 at 16:01 Approved by: Guilherme Bazan M.D. on 03/03/2025 at 16:06
== END 2025-03-03 13:17 | disposition home or self-care (01) ==
PROVIDERS: PCP Family Medicine; Visit Provider Family Medicine
DX: J44.9 Chronic obstructive pulmonary disease, unspecified (principal); R01.1 Cardiac murmur, unspecified
CPT/HCPCS: 93306

== ENCOUNTER 2025-05-02 10:33 | Outpatient (OUT) | payer MEDICARE, BC, SELFPAY ==
--- OUTSIDE RECORDS SUMMARY | 2025-03-16 08:07 | XMS_ITS ---
Author Organization The [facility] in [place] Address [address] [place] [address] Care Team Providers Care Match Marker Name Role Phone Garrett Mills Primary Care Provider [phone] REASON FOR VISIT rf hydroxyzine Medications Medication SIG (Take, Route, Fr equency, Duration) Notes Start Date End Date Status hydrOXYzine HCl 25 MG 1 tablet as needed Orally BID for 30 days 11/21/2024 Active Encounters Encounter Location Date Provider Diagnosis [facility] [address] [place] [address] 03/16/2025 Garrett Mills Anxiety and depressi on F41.9 Assessments Encounter Date Diagnosis (ICD Code) Assessment Notes Treatment Notes Treatment Clinical Notes Section Notes 03/16/2025 Anxiety and depression (ICD-10 - F41.9) Plan Of Treatment Medication Medication Name Sig Start Date Stop Date Notes hydrOXYzine HCl 25 MG 1 tablet as needed Orally BID for 30 days 11/21/2024 Progress Notes * Viviana HUNGDOB: [birth year] (69 yo F)Acc No.[id number]:03/16/2025 Patient: Brennan MORALES Viviana Fisher :1955 A ge:69 Y S ex:Female Address:[address] [place] [address] [place] [address], [address] * Refills Refill hydrOXYzine HCl Tablet, 25 MG, Orally, 60 Tablet, 1 tablet as needed, BID, 30 days, Refills=5 * true * Date: Generated for Printi ng/Faxing/eTransmitting on: 0 05/02/2025 10:35 AM EDT
--- OUTSIDE RECORDS SUMMARY | 2025-03-22 07:00 | XMS_ITS ---
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 Name Role Phone Garrett Mills Primary Care Provider Allergies No Known Allergies REASON FOR VISIT sinus and chest congestion, productive cough- green drainage- sore throat Medications Medication SIG (Take, Route, Frequency, Duration) Notes Start Date End Date Status Benzonatate 200 MG 1 capsule Orally Thr ee times a day for 7 days 03/22/2025 Active levoFLOXacin 750 MG 1 tablet Orally Once a day for 10 day(s) 03/22/2025 Active Trelegy Ellipta 100-62.5-25 MCG/ACT 1 puff Inhalation Once a day 12/19/2024 Active Erlxwzqtt-Sxhxkgjd-HD 30-2-10 MG/5ML 5 ml Orally every 6 hours prn for 7 days PRN 12/08/2024 Active Pristiq 50 MG 1 tablet Orally Once a day for 30 days 03/13/2025 Active Metoprolol Succinate ER 25 MG 1 tablet Orally Once a day for 90 days Active Lasix 20 MG 1 tablet Orally Once a day for 30 days 03/13/2025 Active hydrOXYzine HCl 25 MG 1 tablet as needed Orally BID for 30 days 11/21/2024 Active Gabapentin 300 MG TAKE 1 CAPSULE BY MOUTH TWICE A DAY FOR 30 DAYS for 30 Active Buprenorphine HCl-Naloxone HCl 8-2 MG 1 film under the tongue and allow to dissolve Sublingual bid for 28 days Emilie Active Albuterol Sulfate HFA 108 (90 Base) MCG/ACT 1 puff as needed Inhalation every 4 hrs 12/19/2024 Active Albuterol Sulfate (2.5 MG/3ML) 0.083% 3 mL as needed Inhalation every 6 hrs for 7 days 12/12/2024 Active predniSONE 20 MG 3 tablets Orally Onc e a day for 5 days 03/22/2025 Active Ventolin HFA 108 (90 Base) MCG/ACT 2 puff as needed Inhalation every 4 hrs 03/22/2025 Active Social History Tobacco Use: Social History Observation Description Date Details (start date - stop date) Current Smoker 04/21/1974 - NA Tobacco Control (Standard) Question Answer Notes Tobacco use: Current smoker When did you start smoking? 04/21/1974 Vital Signs Weight 174.6 lbs 03/22/2025 Height 66 in 03/22/2025 Blood pressure systolic 162 mm Hg 03/22/20 25 Blood pressure diastolic 80 mm Hg 025 Temperature 98.1 degrees Fahrenheit 03/22/20 25 Heart Rate 89 /min 03/22/2025 BMI 28.18 kg/m2 03/22/2025 Oximetry 93 % 03/22/2025 Encounters Encounter Location Date Provider Diagnosis [facility] [address] [place] [address] 03/22/2025 Garrett Hoy Acute bronchitis, unspecified organism J20.9 Assessments Encounter Date Diagnosis (ICD Code) Assessment Notes Treatment Notes Treatment Clinical Notes Section Notes 03/22/2025 Acute bronchitis, unspecified organism (ICD-10 - J20.9) Rest and drink more liquids, especially water. You may use a humidifier or vaporizer to help keep the drainage moist. Yqat-wnn-ciuqiwe Nasal Saline may help the stuffy and runny nose. Use Ibuprofen and or Tylenol as needed for fever, chills, body aches or pain. Children 5 years old should not be given zhmp-pqw-akpxxpa cough and cold medications such as guaifenesin and dextromethorphan. If you're over age 5, you may try tuzy-pfz-yjscpzk cold medications such as guaifenesin and dextromethorphan, or multi-symptom cold reliever such as Dayquil to help reduce the symptoms. Antibiotics have been prescribed. You should take these until completed and follow the directions. Antibiotics can sometimes cause upset stomach, and in rare cases, serious allergic reactions or serious gastrointestinal problems. If you start having severe abdominal pain, severe vomiting, or bloody diarrhea, you should be reevaluated by your physician or urgent care immediately. Follow up with your Primary Care Provider or return to clinic if symptoms do not improve within 3-5 days. If you develop severe symptoms such as shortness of breath, repeated vomiting, coughing up blood, or chest pain you should go to the emergency room or call 911 Plan Of Treatment Medication Medication Name Sig Start Date Stop Date Notes Benzonatate 200 MG 1 capsule Orally Thr ee times a day for 7 days 03/22/2025 levoFLOXacin 750 MG 1 tablet Orally Once a day for 10 day(s) 03/22/2025 predniSONE 20 MG 3 tablets Orally Onc e a day for 5 days 03/22/2025 Ventolin HFA 108 (90 Base) MCG/ACT 2 puff as needed Inhalation every 4 hrs 03/22/2025 Treatment Notes Assessment Notes Acute bronchitis, unspecified organism R est and drink more liquids, especially water. You may use a humidifier or vaporizer to help keep the drainage moist. Vdks-ncq-limvypz Nasal Saline may help the stuffy and runny nose. Use Ibuprofen and or Tylenol as needed for fever, chills, body aches or pain. Children 5 years old should not be given mqxe-jqm-xlptxaz cough and cold medications such as guaifenesin and dextromethorphan. If you're over age 5, you may try fwjo-ppq-skpwrbj cold medications such as guaifenesin and dextromethorphan, or multi-symptom cold reliever such as Dayquil to help reduce the symptoms. Antibiotics have been prescribed. You should take these until completed and follow the directions. Antibiotics can sometimes cause upset stomach, and in rare cases, serious allergic reactions or serious gastrointestinal problems. If you start having severe abdominal pain, severe vomiting, or bloody diarrhea, you should be reevaluated by your physician or urgent care immediately. Follow up with your Primary Care Provider or return to clinic if symptoms do not improve within 3-5 days. If you develop severe symptoms such as shortness of breath, repeated vomiting, coughing up blood, or chest pain you should go to the emergency room or call 911 Next Appt Details Follow Up: 3-5 days if not i mproving, Reason: Progress Notes * Viviana HUNG: [birth year] (69 yo F)Acc No.[id number]:03/22/2025 Progress Note Patient: Viviana JACINTO Provider: Elin Mills ([facility])MD :1955 A ge:69 Y S ex:Female Date:03/22/2025 Address:[address] [place], [place] [id number] Check In:10:45 AM ESTCheck O ut:11:50 AM EST Subjective: * Chief Complaints: * S inus and chest congestion, productive cough- green drainage- sore throat * HPI: B ronchitis: The patient complains of symptoms of bronchitis. The symptoms have been present for 1-2 days. The symptoms are moderate. The patient has not been exposed to sick contacts. Symptomatic treatment has included OTC medication. Associated symptoms include nasal congestion, postnasal drainage, congested ears, cough, fever, chills, body aches. * ROS: E NT: Ear pain d enies. H oarseness d enies. ? C ardiovascular: Edema d enies. P alpitations d enies. ? R espiratory: Comments S ee HPI for details. G astrointestinal: Abdominal pain d enies. D iarrhea d enies. N ausea d enies. S kin: Rash d enies. * Active Problem List J44.9 COPD (chronic obstru ctive pulmonary disease) Modified On:04/27/2024U Status:confirmed M19.90 Arthritis Modified On:04/27/2024U Status:confirmed M81.0 Osteoporosis Modified On:04/27/2024U Status:confirmed C18.9 Colon cancer Modified On:04/27/2024U Status:confirmed M06.9 Rheumatoid arthritis Modified On:04/27/2024U Status:confirmed I10 HTN (hypertension) Modified On:04/27/2024U Status:confirmed G62.9 Peripheral neuropath y Modified On:04/27/2024U Status:confirmed F41.9 Anxiety and depressi on Modified On:10/14/2024U Status:confirmed R23.3 Petechiae Modified On:06/02/2025W/U Status:confirmed C18.9 Colon adenocarcinoma Modified On:03/13/2025W/U Status:confirmed * Medical History: * Surgical History: c olon resection Gallbladder YASIR * Hospitalization/Major Diagno stic Procedure: d enies * Family History: F ather: , hyperlipidemia, osteoporosis, copd, diagnosed with Other malignant neoplasm of unspecified site. M other: , glaucoma, congestive heart failure, diagnosed with Unspecified essential hypertension, Unspecified heart disease, Diabetes mellitus without mention of complication, type II or unspecified type, not stated as uncontrolled. B rother(s): alive, diagnosed with Diabetes mellitus without mention of complication, type II or unspecified type, not stated as uncontrolled. S ister(s): alive, diagnosed with Diabetes mellitus without mention of complication, type II or unspecified type, not stated as uncontrolled. * Social History: T obacco Use: T obacco Control (Standard) T obacco use: C urrent smoker W hen did you start smoking? 0 04/21/1974 * Medications: T akingAlbuterol Sulfate (2.5 MG/3ML) 0.083% Nebulization Solution 3 mL as needed Inhalation every 6 hrs Albuterol Sulfate HFA 108 (90 Base) MCG/ACT Aerosol Solution 1 puff as needed Inhalation every 4 hrs Buprenorphine HCl-Naloxone HCl 8-2 MG Film 1 film under the tongue and allow to dissolve Sublingual bid , Notes to Pharmacist: Emilie BovaGabapentin 300 MG Capsule TAKE 1 CAPSULE BY MOUTH TWICE A DAY FOR 30 DAYS hydrOXYzine HCl 25 MG Tablet 1 tablet as needed Orally BID Lasix(Furosemide) 20 MG Tablet 1 tablet Orally Once a day Metoprolol Succinate ER 25 MG Tablet Extended Release 24 Hour 1 tablet Orally Once a day Pristiq(Desvenlafaxine Succinate ER) 50 MG Tablet Extended Release 24 Hour 1 tablet Orally Once a day Hmictfsnn-Aqekpxxw-NA 30-2-10 MG/5ML Syrup 5 ml Orally every 6 hours prn , Notes to Pharmacist: PRNTrelegy Ellipta(Yrazynvzedl-Oajcssxzj-Teityz) 100-62.5-25 MCG/ACT Aerosol Powder Breath Activated 1 puff Inhalation Once a day Taking Albuterol Sulfate (2.5 MG/3ML) 0.083% Nebulization Solution 3 mL as needed Inhalation every 6 hrs Taking Albuterol Sulfate HFA 108 (90 Base) MCG/ACT Aerosol Solution 1 puff as needed Inhalation every 4 hrs Taking Buprenorphine HCl-Naloxone HCl 8-2 MG Film 1 film under the tongue and allow to dissolve Sublingual bid , Notes to Pharmacist: Emilie Crespo Gabapentin 300 MG Capsule TAKE 1 CAPSULE BY MOUTH TWICE A DAY FOR 30 DAYS Taking hydrOXYzine HCl 25 MG Tablet 1 tablet as needed Orally BID Taking Lasix(Furosemide) 20 MG Tablet 1 tablet Orally Once a day Taking Metoprolol Succinate ER 25 MG Tablet Extended Release 24 Hour 1 tablet Orally Once a day Taking Pristiq(Desvenlafaxine Succinate ER) 50 MG Tablet Extended Release 24 Hour 1 tablet Orally Once a day Taking Sneymjjma-Tgagvrst-KH 30-2-10 MG/5ML Syrup 5 ml Orally every 6 hours prn , Notes to Pharmacist: PRNTaking Trelegy Ellipta(Xojondkvvrn-Mnptzgync-Dvlyqe) 100-62.5-25 MCG/ACT Aerosol Powder Breath Activated 1 puff Inhalation Once a day DiscontinuedNystatin 574688 UNIT/ML Suspension 4 mL Mouth/Throat Four times a day predniSONE 20 MG Tablet 2 tablets Orally Once a day Medication List reviewed and reconciled with the patientDiscontinued Nystatin 270372 UNIT/ML Suspension 4 mL Mouth/Throat Four times a day Discontinued predniSONE 20 MG Tablet 2 tablets Orally Once a day Medication List reviewed and reconciled with the patient * Allergies: N .K.D.A.no[Allergies Verified] Objective: * Vitals: W t:174.6lbs, Ht: 66 in, BP:162/80mm Hg, Temp:98.1F, HR:89/min, BMI:28.18Index, Oxygen sat %:93%, Ht-cm: 167.64 cm, Wt-k.2 kg. * Examination: G eneral Examination: GENERAL APPEARANCE: in no acute distress. EYES: EOMI. EARS: auditory canal clear, middle ear effusion noted.? NOSE: clear discharge, turbinates pale and swollen. ORAL CAVITY: mucosa moist. THROAT: no erythema, post-nasal drainage noted. NECK: neck supple, no thyromegaly. LYMPH NODES: n o cervical adenopathy. LUNGS: unlabored, clear to auscultation bilaterally. CARDIO: n o murmurs, regular rate and rhythm. ABDOMEN: bowel sounds present, no organomegaly . ? Assessment: * Assessment: 1. A cute bronchitis, unspecified organism - J20.9 (Primary) Plan: * Treatment: * Procedure Codes: * Preventive Medicine: Screenings/Counseling: B UT ACTION PLAN Above Normal BMI Follow-up D ietary management education, guidance, and counseling * Follow Up: 3 -5 days if not improving * * Sign off status: Completed Visit Status: C HK (Check Out) true * Provider: Elin Mills ([facility])MD Date: 0 03/22/2025 Generated for Hair pradhan/Abhi/eTransmitting on: 0 05/02/2025 10:35 AM EDT History and Physical Notes * Examination Category Sub-Category Detail Notes Category Not es General Examination GENERAL APPEARANCE: in no acute di stress EYES: EOMI EARS: auditory canal clear , middle ear effusion noted NOSE: clear discharge, tur binates pale and swollen THROAT: no erythema, post-na richard drainage noted NECK: neck supple, no thyr omegaly CARDIO: no murmurs, regular rate and rhythm LUNGS: unlabored, clear to auscultation bilaterally ABDOMEN: bowel sounds present , no organomegaly LYMPH NODES: no cervical adenopat hy ORAL CAVITY: mucosa moist
--- OUTSIDE RECORDS SUMMARY | 2025-03-27 06:00 | XMS_ITS ---
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 Medications Medication SIG (Take, Route, Frequency, Duration) Notes Start Date End Date Status hydrOXYzine HCl 25 MG 1 tablet as needed Orally BID for 30 days 11/21/2024 Active Benzonatate 200 MG 1 capsule Orally Thr ee times a day for 7 days 03/22/2025 Active Albuterol Sulfate HFA 108 (90 Base) MCG/ACT 1 puff as needed Inhalation every 4 hrs 12/19/2024 Active Buprenorphine HCl-Naloxone HCl 8-2 MG 1 film under the tongue and allow to dissolve Sublingual bid for 28 days Active Gabapentin 300 MG TAKE 1 CAPSULE BY MOUTH TWICE A DAY FOR 30 DAYS for 30 Active Albuterol Sulfate (2.5 MG/3ML) 0.083% 3 mL as needed Inhalation every 6 hrs for 7 days 12/12/2024 Active Trelegy Ellipta 100-62.5-25 MCG/ACT 1 puff Inhalation Once a day 12/19/2024 Active predniSONE 10 MG 5 tabs per day for 3 days, 4 tabs per day for 3 ays, 3 tabs perday for 3 days, 2 tabs per day for 3 days, 1 tab a day for 3 days, 1/2 tab a day for 4 days Orally Once a day for 19 days 03/27/2025 Active Ventolin HFA 108 (90 Base) MCG/ACT 2 puff as needed Inhalation every 4 hrs 03/22/2025 Active Amoxicillin-Pot Clavulanate 875-125 MG 1 tablet Orally every 12 hrs for 10 days 03/27/2025 Active Metoprolol Succinate ER 25 MG 1 tablet Orally Once a day for 90 days Active predniSONE 20 MG 3 tablets Orally Onc e a day for 5 days 03/22/2025 Active levoFLOXacin 750 MG 1 tablet Orally Once a day for 10 day(s) 03/22/2025 Active Pristiq 50 MG 1 tablet Orally Once a day for 30 days 03/13/2025 Active Qkqvocqkv-Jqenvczo-VA 30-2-10 MG/5ML 5 ml Orally every 6 hours prn for 7 days PRN 12/08/2024 Active Lasix 20 MG 1 tablet Orally Once a day for 30 days 03/13/2025 Active Social History Tobacco Use: Social History Observation Description Date Details (start date - stop date) Current Smoker 04/21/1974 - NA Tobacco Control (Standard) Question Answer Notes Tobacco use: Current smoker When did you start smoking? 04/21/1974 AUDIT-C (Standard) Question Answer Notes Did you have a drink containing alcohol in the p ast year? No Points 0 Interpretation Negative Vital Signs Weight 173.6 lbs 03/27/2025 Height 66 in 03/27/2025 Blood pressure systolic 220 mm Hg 03/27/20 25 Blood pressure diastolic 130 mm Hg 025 Temperature 98.6 degrees Fahrenheit 03/27/20 25 BMI 28.02 kg/m2 03/27/2025 Oximetry 95 % 03/27/2025 Encounters Encounter Location Date Provider Diagnosis [facility] [address] [place] [address] 03/27/2025 [place] Acute bronchitis, unspecified organism J20.9 Assessments Encounter Date Diagnosis (ICD Code) Assessment Notes Treatment Notes Treatment Clinical Notes Section Notes 03/27/2025 Acute bronchitis, unspecified organism (ICD-10 - J20.9) Rest and drink more liquids, especially water. You may use a humidifier or vaporizer to help keep the drainage moist. Fdty-zze-azvkhkq Nasal Saline may help the stuffy and runny nose. Use Ibuprofen and or Tylenol as needed for fever, chills, body aches or pain. Children 5 years old should not be given ugrg-cbw-pbclbfw cough and cold medications such as guaifenesin and dextromethorphan. If you're over age 5, you may try ehhn-hdg-umdxwwr cold medications such as guaifenesin and dextromethorphan, [...] Name Sig Start Date Stop Date Notes predniSONE 10 MG 5 tabs per day for 3 days, 4 tabs per day for 3 ays, 3 tabs perday for 3 days, 2 tabs per day for 3 days, 1 tab a day for 3 days, 1/2 tab a day for 4 days Orally Once a day for 19 days 03/27/2025 Amoxicillin-Pot Clavulanate 875-125 MG 1 tablet Orally every 12 hrs for 10 days 03/27/2025 Treatment Notes Assessment Notes Acute bronchitis, unspecified organism R est and drink more liquids, especially water. You may use a humidifier or vaporizer to help keep the drainage moist. Ojkx-vbe-pcqheks Nasal Saline may help the stuffy and runny nose. Use Ibuprofen and or Tylenol as needed for fever, chills, body aches or pain. Children 5 years old should not be given cdfn-qtx-axydqts cough and cold medications such as guaifenesin and dextromethorphan. If you're over age 5, you may try nyne-tce-hnwicth cold medications such as guaifenesin and dextromethorphan, [...] to the emergency room or call 911 Pending Test Test Name Order Date BNP 03/27/2025 CBC AUTO DIFF 03/27/2025 CULTURE SPUTUM 03/27/2025 PROF 14(COMP METB) 03/27/2025 SPUTUM GRAM STAIN 03/27/2025 XR CHEST 2 V 03/27/2025 Next Appt Details Follow Up: 3-5 days if not i mproving, Reason: Progress Notes * Viviana HNUGDOB: [birth year] (69 yo F)Acc No.[id number]:03/27/2025 Progress Note Patient: Viviana JACINTO Provider: Elin Mills ([facility])MD :1955 A ge:69 Y S ex:Female Date:03/27/2025 Address:[address] [place], [place] [id number] Check In:09:50 AM ESTCheck O ut:10:25 AM EST Subjective: * Chief Complaints: * P resents to office alone for c/o cough getting worse. * HPI: G eneral: Feelign worse - stil green sputujm not responding to meds. B ronchitis: The patient complains of symptoms [...] COPD (chronic obstru ctive pulmonary disease) Modified On:04/27/2024 Status:confirmed M19.90 Arthritis Modified On:04/27/2024 Status:confirmed M81.0 Osteoporosis Modified On:04/27/2024 Status:confirmed C18.9 Colon cancer Modified On:04/27/2024 Status:confirmed M06.9 Rheumatoid arthritis Modified On:04/27/2024 Status:confirmed I10 HTN (hypertension) Modified On:04/27/2024 Status:confirmed G62.9 Peripheral neuropath y Modified On:04/27/2024 Status:confirmed F41.9 Anxiety and depressi on Modified On:10/14/2024 Status:confirmed R23.3 Petechiae Modified On:03/13/2025 Status:confirmed C18.9 Colon adenocarcinoma Modified On:03/13/2025 Status:confirmed * Medical History: * Surgical History: c olon resection Gallbladder YASIR * Hospitalization/Major Diagno stic Procedure: d enies * Family History: F ather: , hyperlipidemia, osteoporosis, copd, diagnosed with Other malignant neoplasm of unspecified site. M other: , glaucoma, congestive heart failure, diagnosed with Diabetes mellitus without mention of complication, type II or unspecified type, not stated as uncontrolled, Unspecified essential hypertension, Unspecified heart disease. B rother(s): alive, diagnosed with Diabetes mellitus without mention of complication, type II or unspecified type, not stated as uncontrolled. S isarmando(s): alive, diagnosed with Diabetes mellitus without mention of complication, type II or unspecified type, not stated as uncontrolled. * Social History: T obacco Use: T obacco Control (Standard) T obacco use: C urrent smoker W hen did you start smoking? 0 04/21/1974 D rug/Alcohol: A CIERRA-C (Standard) D id you have a drink containing alcohol in the past year? N o P oints 0 I nterpretation N egative * Medications: T akingAlbuterol Sulfate (2.5 MG/3ML) 0.083% Nebulization Solution 3 mL as needed Inhalation every 6 hrs Albuterol Sulfate HFA 108 (90 Base) MCG/ACT Aerosol Solution 1 puff as needed Inhalation every 4 hrs Benzonatate 200 MG Capsule 1 capsule Orally Three times a day Buprenorphine HCl-Naloxone HCl 8-2 MG Film 1 film under the tongue and allow to dissolve Sublingual bid , Notes to Pharmacist: Emilie CoronaaGabapentin 300 MG Capsule TAKE 1 CAPSULE BY MOUTH TWICE A DAY FOR 30 DAYS hydrOXYzine HCl 25 MG Tablet 1 tablet as needed Orally BID Lasix(Furosemide) 20 MG Tablet 1 tablet Orally Once a day levoFLOXacin 750 MG Tablet 1 tablet Orally Once a day Metoprolol Succinate ER 25 MG Tablet Extended Release 24 Hour 1 tablet Orally Once a day predniSONE 20 MG Tablet 3 tablets Orally Once a day Pristiq(Desvenlafaxine Succinate ER) 50 MG Tablet Extended Release 24 Hour 1 tablet Orally Once a day Bnhgrwxmy-Zzsktvdg-FD 30-2-10 MG/5ML Syrup 5 ml Orally every 6 hours prn , Notes to Pharmacist: PRNTrelegy Ellipta(Rszmnzortea-Nbtmhpmth-Cuxlqw) 100-62.5-25 MCG/ACT Aerosol Powder Breath Activated 1 puff Inhalation Once a day Ventolin HFA(Albuterol Sulfate HFA) 108 (90 Base) MCG/ACT Aerosol Solution 2 puff as needed Inhalation every 4 hrs Medication List reviewed and reconciled with the patientTaking Albuterol Sulfate (2.5 MG/3ML) 0.083% Nebulization Solution 3 mL as needed Inhalation every 6 hrs Taking Albuterol Sulfate HFA 108 (90 Base) MCG/ACT Aerosol Solution 1 puff as needed Inhalation every 4 hrs Taking Benzonatate 200 MG Capsule 1 capsule Orally Three times a day Taking Buprenorphine HCl-Naloxone HCl 8-2 MG Film 1 film under the tongue and allow to dissolve Sublingual bid , Notes to Pharmacist: Emilie Crespo Gabapentin 300 MG Capsule TAKE 1 CAPSULE BY MOUTH TWICE A DAY FOR 30 DAYS Taking hydrOXYzine HCl 25 MG Tablet 1 tablet as needed Orally BID Taking Lasix(Furosemide) 20 MG Tablet 1 tablet Orally Once a day Taking levoFLOXacin 750 MG Tablet 1 tablet Orally Once a day Taking Metoprolol Succinate ER 25 MG Tablet Extended Release 24 Hour 1 tablet Orally Once a day Taking predniSONE 20 MG Tablet 3 tablets Orally Once a day Taking Pristiq(Desvenlafaxine Succinate ER) 50 MG Tablet Extended Release 24 Hour 1 tablet Orally Once a day Taking Wmfnslayz-Qfnzimie-KM 30-2-10 MG/5ML Syrup 5 ml Orally every 6 hours prn , Notes to Pharmacist: PRNTaking Trelegy Ellipta(Lqkgeyuekxo-Kalxogefj-Mtwkxy) 100-62.5-25 MCG/ACT Aerosol Powder Breath Activated 1 puff Inhalation Once a day Taking Ventolin HFA(Albuterol Sulfate HFA) 108 (90 Base) MCG/ACT Aerosol Solution 2 puff as needed Inhalation every 4 hrs Medication List reviewed and reconciled with the patient * Allergies: N .K.D.A.no[Allergies Verified] Objective: * Vitals: W t:173.6lbs, Ht: 66 in, BP:220/130mm Hg, Temp:98.6F, BMI:28.02Index, Oxygen sat %:95%, Ht-cm: 167.64 cm, Wt-k.74 kg. * Examination: G eneral Examination: GENERAL APPEARANCE: in no acute distress. EYES: EOMI. EARS: auditory canal clear, middle ear effusion noted.? NOSE: clear discharge, turbinates pale and swollen. ORAL CAVITY: mucosa moist. THROAT: no erythema, post-nasal drainage noted. NECK: neck supple, no thyromegaly. LYMPH NODES: n o cervical adenopathy. LUNGS: d iffuse rthonchi - no wheeze - worse than last time. CARDIO: n o murmurs, regular rate and rhythm. ABDOMEN: bowel sounds present, no organomegaly . ? Assessment: * Assessment: 1. A cute bronchitis, unspecified organism - J20.9 (Primary) Plan: * Treatment: * Procedure Codes: * Preventive Medicine: Screenings/Counseling: B MO ACTION PLAN Above Normal BMI Follow-up D ietary management education, guidance, and counseling See treatment section of progress note for complete details of management plan. T OBACCO ACTION PLAN Patient counselled on the dangers of tobacco use and urged to quit. 0 03/27/2025 . F ALL RISK SCREENING Fall Risk Assessment: N o falls in the past year * Follow Up: 3 -5 days if not improving * * Sign off status: Completed Visit Status: C HK (Check Out) true * Provider: Elin Mills ([facility])MD Date: 0 03/27/2025 Generated for Hair pradhan/Abhi/Jamaalitting on: 0 05/02/2025 10:35 AM EDT History and Physical Notes * HPI (History of Present Illness) Category Sub-Category Detail Notes Category Not es General Feelign worse - stil green sputujm not responding to meds Examination Category Sub-Category Detail Notes Category Not es General Examination GENERAL APPEARANCE: in no acute di stress EYES: EOMI EARS: auditory canal clear , middle ear effusion noted NOSE: clear discharge, tur binates pale and swollen THROAT: no erythema, post-na richard drainage noted NECK: neck supple, no thyr omegaly CARDIO: no murmurs, regular rate and rhythm LUNGS: diffuse rthonchi - n o wheeze - worse than last time ABDOMEN: bowel sounds present , no organomegaly LYMPH NODES: no cervical adenopat hy ORAL CAVITY: mucosa moist
--- OUTSIDE RECORDS SUMMARY | 2025-05-02 10:36 | XMS_ITS | Encounter Summary ---
Author Organization [facility] Address [address] [place] [address] Care Team Providers Care Boat Canvas Maker Installer Name Role Phone Zak Rivas MD Primary Care Provider Doreen Garcia NP Unavailable [phone] Encounter Details Date Type Department Care Team ([facility] Contact Info) Description 07/07/2024 Abstract [facility] [address] [place] [id number] Doreen Garcia NP [address] [place] [id number] Social History Tobacco Use Types Packs/Day Years Used Date Smoking Tobacco: Never Assessed Comments Unknown Sex and Gender Information Value Date Recorded Sex Assigned at Not on file Legal Sex Female 7:10 PM EDT Gender Identity Not on file Sexual Orientation Not on file documented as of this encounter Plan of Treatment Not on file documented as of this encounter Visit Diagnoses Not on filedocumented in this encounter Care Teams Boat Canvas Maker Installer Relationship Specialty Start Date End Date Zak Rivas MD PCP - General Family Medicine 05/15/23 Doreen Garcia NP [address] [place] [phone] Nurse Practitioner Family Medicine 05/15/23 documented as of this encounter
--- OUTSIDE RECORDS SUMMARY | 2025-05-02 10:36 | XMS_ITS | Encounter Summary ---
Author Organization [facility] Address [address] [place] [address] Care Team Providers Care Hay Stacker Operator Name Role Phone Zak Rivas MD Primary Care Provider [phone] Doreen Garcia NP Unavailable [phone] Reason for Visit * Reason Comments Med Refill Encounter Details Date Type Department Care Team ([facility] Contact Info) Description 09/22/2023 [facility]ill [facility] [address] [place] [address] Doreen Garcia NP [address] [place] [address] Social History Tobacco Use Types Packs/Day Years Used Date Smoking Tobacco: Never Assessed Comments Unknown Sex and Gender Information Value Date Recorded Sex Assigned at Not on file Legal Sex Female 7:10 PM EDT Gender Identity Not on file Sexual Orientation Not on file documented as of this encounter Miscellaneous Notes * Telephone Encounter - Doreen Garcia NP - 09/22/2023 1:14 PM EST Needs an appt and labs documented in this encounter Plan of Treatment Not on file documented as of this encounter Visit Diagnoses Not on filedocumented in this encounter Care Teams Hay Stacker Operator Relationship Specialty Start Date End Date Zak Rivas MD PCP - General Family Medicine 05/15/23 Dorene Garcia NP [address] [facility] [place] [address] Nurse Practitioner Family Medicine 05/15/23 documented as of this encounter
--- OUTSIDE RECORDS SUMMARY | 2025-05-02 10:36 | XMS_ITS | Encounter Summary ---
Author Organization [facility] Address [address] [place] [address] Care Team Providers Care It Manager Name Role Phone Zak Rivas MD Primary Care Provider [phone] Doreen Garcia HELPDESK SPECIALIST Unavailable [phone] Reason for Visit * Reason Comments Med Refill Encounter Details Date Type Department Care Team ([facility] Contact Info) Description 09/23/2023 Refill [facility] [address] [place] [address] Doreen Garcia NP [address] [place] [address] Essential (primary) hypertension ; Essential hypertension Social History Tobacco Use Types Packs/Day Years Used Date Smoking Tobacco: Never Assessed Comments Unknown Sex and Gender Information Value Date Recorded Sex Assigned at Not on file Legal Sex Female 7:10 PM EDT Gender Identity Not on file Sexual Orientation Not on file documented as of this encounter Miscellaneous Notes * Telephone Encounter - Doreen Garcia NP - 09/23/2023 7:38 AM EST Needs an appt documented in this encounter Plan of Treatment Not on file documented as of this encounter Visit Diagnoses Diagnosis Essential (primary) hypertension Unspecified essential hypertension Essential hypertension Unspecified essential hypertension documented in this encounter Care Teams It Manager Relationship Specialty Start Date End Date Zak Rivas MD PCP - General Family Medicine 05/15/23 Doreen Garcia NP [address] [place] [phone] Nurse Practitioner Family Medicine 05/15/23 documented as of this encounter
--- OUTSIDE RECORDS SUMMARY | 2025-05-02 10:36 | XMS_ITS | Patient Health Record ---
Author Organization [facility] in [place] Address [address] [place] [address] Care Team Providers Care Level Glass Forming Machine Operator Name Role Phone DyllanmianGarrett Primary Care Provider Pamela Canales Unavailable [phone] Allergies No Known Allergies Results Component Value Reference Range Notes XR FOOT LT 2V Reviewed date:07/12/2024 02:33:30 PM Interpretation: Performing Lab: Notes/Report: Source Facility: [place] [address] XRay Report Signed Patient: VIVIANA HUNG MR#: [id number] : 1955 Acct:[id number] Age/Sex: 69 / F ADM Date: 07/11/24 Loc: [facility] Attending Dr: PAMELA CANALES Ordering Physician: PAMELA CANALES Date of Service: 07/11/24 Procedure(s): XR foot LT 2V Accession Number(s): [id number] cc: PAMELA CANALES [place] [id number] Patient Name: VIVIANA HUNG MRN: [id number] date: 1955 Sex: F Assigned Patient Location: RAD Current Patient Location: Accession/Order Number: [id number] Exam Date: 07/11/2024 15:41 Report Date: 07/12/2024 05:56 At the request of: PAMELA CANALES Procedure: XR foot LT 2V PROCEDURE: XR foot LT 2V HISTORY: Arthritis COMPARISON: None. FINDINGS: BONES:Mild narrowing of the joint space of the first and 5th metatarsophalangeal joints. Mild degenerative enthesopathic spurring of the calcaneus. No fracture or dislocation. SOFT TISSUES:No visible soft tissue swelling. EFFUSION:None visible. OTHER: Negative. XR/XR foot LT 2V IMPRESSION: 1. Mild degenerative changes favoring osteoarthritis. Electronically authenticated by: TALIB TABARES Date: 07/12/2024 05:56 Dictated By: Talib Tabares M.D. Signed By: 07/12/24558 DD/ 5 TD/TT: Girls Swimming Coach: [place] [address] XRay Report Signed Patient: TUSHAR HUNG MR#: [id number] : 1955 Acct:[id number] Age/Sex: 69 / F ADM Date: 07/11/24 Loc: [facility] Attending Dr: PAMELA CANALES Ordering Physician: PAMELA CANALES Date of Service: 07/11/24 Procedure(s): XR foot LT 2V Accession Number(s): [id number] cc: PAMELA CANALES [place] [id number] Patient Name: VIVIANA HUNG MRN: [id number] date: 1955 Sex: F Assigned Patient Loc ation: JAMIA Current Patient Location: Accession/Order Numb er: [id number] Exam Date: 07/11/2024 15:41 Report Date: 07/12/2024 05:56 At the request of: PAMELA CANALES Procedure: XR foot LT 2V PROCEDURE: XR foot LT 2V HISTORY: Arthritis COMPARISON: None. FINDINGS: BONES:Mild narrowing of the joint space of the first and 5th metatarsophalangeal joints. Mild degenerative enthesopathic spurring of the calcaneus. No fractu re or dislocation. SOFT TISSUES:No visi ble soft tissue swelling. EFFUSION:None visible. OTHER: Negative. X R/XR foot LT 2V IMPRESSION: 1. Mild degenerative changes favoring osteoarthritis. Electronically authenticated by: TALIB ATBARES Date: 07/12/2024 05:56 Dictated By: Talib Tabares M.D. Signed By: 07/12/2459 DD/ TD/TT: Girls Swimming Coach: WILLIAM19, Flu A+B IH Reviewed date:12/08/2024 11:11:57 AM Interpretation: Performing Lab: Notes/Report: COVID - FLU A - FLU B - Control + BNP Reviewed date:01/09/2025 09:33:48 PM Interpretation: Performing Lab: Notes/Report: [facility] , NT Pro B Type Natriuretic Pept 74.0 <=900.0 pg/mL Performing Lab: see note ML - [facility] LB CBC AUTO DIFF Reviewed date:01/09/2025 09:33:48 PM Interpretation: Performing Lab: Notes/Report: [facility] , White Blood Count 8.1 4.0-11.0 10 3/uL Red Blood Count 3.87 4.20-5.40 10 6/uL Hemoglobin 12.1 12.0-16.0 g/dL Hematocrit 36.2 36.0-48.0 % Mean Corpuscular Volume 93.5 81.0-99.0 fL Mean Corpuscular Hemoglobin 31.3 26.7-34.0 pg Mean Corpuscular HGB Conc 33.4 29.9-35.2 g/dL Red Cell Distribution Width 12.7 11.0-15.0 % Platelet Count 275 150-450 10 3/uL Mean Platelet Volume 8.8 9.5-13.5 fL Neutrophils Percent Auto 66.1 43.0-75.0 % Lymphocytes Percent Auto 23.4 20.5-60.0 % Monocytes Percent Auto 9.1 1.7-12.0 % Eosinophils Percent Auto 1.2 0.9-7.0 % Basophils Percent Auto 0.1 0.2-2.0 % Immature Granulocytes Pct Auto 0.1 0.0-0.5 % Neutrophils Absolute Auto 5.4 1.4-6.5 10 3/uL Lymphocytes Absolute Auto 1.9 1.2-3.8 10 3/uL Monocytes Absolute Auto 0.7 0.3-0.8 10 3/uL Eosinophils Absolute Auto 0.1 0.0-0.7 10 3/uL Basophils Absolute Auto 0.0 0.0-0.1 10 3/uL Immature Granulocytes Abs Auto 0.01 0.00-0.03 10 3/uL Performing Lab: see note - [facility] LB PROF 14(COMP METB) Reviewed date:01/09/2025 09:33:48 PM Interpretation: Performing Lab: Notes/Report: [facility] , Sodium 143 136-145 mmol/L Potassium 3.5 3.5-5.1 mmol/L Chloride 107 98-107 mmol/L Carbon Dioxide 30.3 21.0-32.0 mmol/L Anion Gap 9.2 Glucose 120 74-106 mg/dL Blood Urea Nitrogen 10.0 7.0-18.0 mg/dL Creatinine 0.67 0.55-1.02 mg/dL Estimated GFR ( Tonya >60 >=60 mL/min/1.73m 2 Estimated GFR (Non- Leanne >60 >=60 mL/min/1.73m 2 BUN Creatinine Ratio 14.9 Calcium 9.6 8.5-10.1 mg/dL Bilirubin Total 0.2 0.2-1.0 mg/dL Aspartate Amino Transferase 21 15-37 U/L Alanine Aminotransferase 25 14-59 U/L Alkaline Phosphatase 204 46-116 U/L Total Protein 6.9 6.4-8.2 g/dL Albumin Level 3.1 3.4-5.0 g/dL Globulin 3.8 Albumin Globulin Ratio 0.8 Performing Lab: see note - [facility] US venous doppler LE BI Reviewed date:06/16/2024 11:12:48 AM Interpretation: Performing Lab: Notes/Report: Source Facility: [facility] [place] [address] [place] [address] Ultrasound Report Signed Patient: VIVIANA HUNG MR#: [id number] : 1955 Acct:[id number] Age/Sex: 69 / F ADM Date: 06/15/24 Loc: RAD Attending Dr: PAMELA CANALES Ordering Physician: PAMELA CANALES Date of Service: 06/15/24 Procedure(s): US venous doppler LE LT Accession Number(s): [id number] cc: PAMELA CANALES [address] [id number] Patient Name: VIVIANA HUNG MRN: [id number] date: 1955 Sex: F Assigned Patient Location: RAD Current Patient Location: Accession/Order Number: [id number] Exam Date: 06/15/2024 17:10 Report Date: 06/16/2024 05:06 At the request of: PAMELA CANALES Procedure: US venous doppler LE LT EXAMINATION: US venous doppler LE LT HISTORY: LEFT LEG PAIN M79.605 COMPARISON: No relevant comparison available. FINDINGS: REGION: Left lower extremity THROMBI: None. COMPRESSIBILITY: Normal compressibility. FLOW: Normal waveform and antegrade flow between 5 and 20 cm/s. OTHER: None. US/US venous doppler LE LT IMPRESSION: 1. No deep vein thrombus within the left lower extremity. Electronically authenticated by: TALIB TABARES Date: 06/16/2024 05:06 Dictated By: Talib Tabares M.D. Signed By: 06/16/24507 DD/ 5 TD/TT: Girls Swimming Coach: [place] [address] Ultrasound Report Signed Patient: TUSHAR HUNG MR#: [id number] : 1955 Acct:[id number] Age/Sex: 69 / F ADM Date: 06/15/24 Loc: RAD Attending Dr: PAMELA CANALES Ordering Physician: PAMELA CANALES Date of Service: 06/15/24 Procedure(s): US cathie ous doppler LE LT Accession Number(s): [id number] cc: PAMELA CANALES [address] [address] Patient Name: VIVIANA HUNG MRN: [id number] date: 1955 Sex: F Assigned Patient Loc ation: JAMIA Current Patient Location: Accession/Order Numb er: [id number] Exam Date: 06/15/2024 17:10 Report Date: 06/16/2024 05:06 At the request of: PAMELA CANALES Procedure: US venous doppler LE LT EXAMINATION: US veno us doppler LE LT HISTORY: LEFT LEG PA IN M79.605 COMPARISON: No relev ant comparison available. FINDINGS: REGION: Left lower extremity THROMBI: None. COMPRESSIBILITY: Nor mal compressibility. FLOW: Normal wavefor m and antegrade flow between 5 and 20 cm/s. OTHER: None. U S/US venous doppler LE LT IMPRESSION: 1. No deep vein thro mbus within the left lower extremity. Electronically authenticated by: TALIB TABARES Date: 06/16/2024 05:06 Dictated By: Talib Tabares M.D. Signed By: 06/16/24507 DD/ 5 TD/TT: Girls Swimming Coach: FREE T4 Reviewed date:01/09/2025 09:33:48 PM Interpretation: Performing Lab: Notes/Report: [facility] , Free T4 1.19 0.76-1.46 ng/dL Performing Lab: see note ML - [facility] LB TSH Reviewed date:01/09/2025 09:33:48 PM Interpretation: Performing Lab: Notes/Report: [facility] , Thyroid Stimulating Hormone 0.818 0.358-3.740 uIU/mL Performing Lab: see note ML - [facility] LB XR chest 2V Reviewed date:01/11/2025 07:47:11 PM Interpretation: Performing Lab: Notes/Report: Source Facility: [facility] [place] [address] [place] [address] XRay Report Signed Patient: VIVIANA HUNG MR#: [id number] : 1955 Acct:[id number] Age/Sex: 69 / F ADM Date: 01/11/25 Loc: RAD Attending Dr: Kong Unger M.D. Ordering Physician: Kong Unger M.D. Date of Service: 01/11/25 Procedure(s): XR chest 2V Accession Number(s): [id number] cc: PAMELA CANALES ; Kong Unger M.D. The [place] [address] Patient Name: VIVIANA HUNG MRN: [id number] date: 1955 Sex: F Assigned Patient Location: RAD Current Patient Location: RAD Accession/Order Number: [id number] Exam Date: 01/11/2025 13:18 Report Date: 01/11/2025 13:19 At the request of: KONG UNGER MD Procedure: XR chest 2V Plain film chest 2 view HISTORY: Cough and shortness of breath for 6 weeks COMPARISON: None FINDINGS: SUPPORT DEVICES: None POSTSURGICAL CHANGES: None HEART: Within normal limits PULMONARY WARREN: Within normal limits MEDIASTINUM: Unremarkable LUNGS AND PLEURA: No acute lung process, pleural effusion or pneumothorax identified. Mild interstitial changes BONY STRUCTURES: Thoracic spondylosis ADDITIONAL FINDINGS None XR/XR chest 2V IMPRESSION: No acute process. Impression dictated by: Brent Clark M.D.01/11/2025 1:19 PM Dictation Location: [place] [address] Electronically authenticated by: [id number] Y Date: 01/11/2025 13:19 Dictated By: Brent Clark D.O. Signed By: 01/11/25 1322 DD/ 1319 TD/TT: Girls Swimming Coach: [place] [address] XRay Report Signed Patient: TUSHAR HUNG MR#: [id number] : 1955 Acct:[id number] Age/Sex: 69 / F ADM Date: 01/11/25 Loc: RAD Attending Dr: Teodora Unger M.D. Ordering Physician: Kong Unger M.D. Date of Service: 01/11/25 Procedure(s): XR chest 2V Accession Number(s): [id number] cc: PAMELA CANALES ; Kong Unger M.D. [place] [id number] Patient Name: VIVIANA HUNG MRN: [id number] date: 1955 Sex: F Assigned Patient Loc ation: RAD Current Patient Loca tion: RAD Accession/Order Numb er: [id number] Exam Date: 01/11/2025 13:18 Report Date: 01/11/2025 13:19 At the request of: KONG UNGER MD Procedure: XR chest 2V Plain film chest 2 view HISTORY: Cough and shortness of breath for 6 weeks COMPARISON: None FINDINGS: SUPPORT DEVICES: None POSTSURGICAL CHANGES: None HEART: Within normal limits PULMONARY WARREN: With in normal limits MEDIASTINUM: Unremarkable LUNGS AND PLEURA: No acute lung process, pleural effusion or pneumothorax identified. Mild interstitial changes BONY STRUCTURES: Tho racic spondylosis ADDITIONAL FINDINGS None X R/XR chest 2V IMPRESSION: No acute process. Impression dictated by: Brent Clark M.D.01/11/2025 1:19 PM Dictation Location: [place] [address] Electronically authenticated by: [id number] Y Date: 01/11/2025 13:19 Dictated By: Shashi Clark D.O. Signed By: 01/11/25 1322 DD/ 1319 TD/TT: Girls Swimming Coach: CA echo doppler complete Reviewed date:03/04/2025 11:54:12 AM Interpretation: Performing Lab: Notes/Report: Source Facility: [place] [address] Cardiology Report Signed Patient: VIVIANA HUNG MR#: [id number] : 1955 Acct:[id number] Age/Sex: 69 / F ADM Date: 03/03/25 Loc: CARD Attending Dr: Kong Unger M.D. Ordering Physician: Kong Unger M.D. Date of Service: 03/03/25 Procedure(s): CA echo doppler complete Accession Number(s): [id number] cc: Kong Unger M.D. Patient Name: VIVIANA HUNG MR#: [id number] : 1955 Exam Date: 03/03/2025 Ordering Doctor: DR KONG UNGER . ECHOCARDIOGRAM REPORT PROCEDURE: CA ECHO DOPPLER COMPLETE INDICATIONS: Murmur, COPD, hypertension COMPARISON: None. DESCRIPTION: COMPLETE ECHOCARDIOGRAM Real-time transthoracic echocardiography with 2D, M-mode, spectral and color flow Doppler performed. QUALITY: Technical quality was good. LEFT VENTRICLE: Normal chamber size. Mild concentric left ventricular hypertrophy D-shaped septum consistent with right ventricular pressure and volume overload. LV EF: Global left ventricular systolic function is normal; visually estimated ejection fraction is 55 to 60%. No wall motion abnormalities. DIASTOLIC: Grade II diastolic dysfunction. ATRIAL SEPTUM: Visually appears intact. LEFT ATRIUM: Moderate dilatation. RIGHT ATRIUM: Normal chamber size. RIGHT VENTRICLE: Normal chamber size. Normal systolic function. TRICUSPID VALVE: Normal mobility and thickness. No stenosis with trivial regurgitation. Doppler studies reveal moderately (45-60) elevated right sided pressures. RVSP 56 mmHg MITRAL VALVE: Normal mobility and thickness. No evidence of mitral valve stenosis. Moderate, nodular, mitral annular calcification. Trivial mitral regurgitation. AORTIC VALVE: Normal trileaflet appearance. Mildly calcified aortic valve. Normal leaflet mobility. No evidence of aortic valve stenosis. No aortic regurgitation. AORTIC ROOT: Normal diameter and appearance. Ascending aorta is normal in size. PULMONIC VALVE: Normal thickness and mobility. No stenosis. Trivial regurgitation. PERICARDIUM: No evidence of pericardial effusion. IVC: IVC is dilated (3.1 cm), does not fully collapse. CONCLUSION: 1. Global left ventricular systolic function is normal; visually estimated ejection fraction is 55 to 60% 2. Mild left ventricular hypertrophy 3. D-shaped septum consistent with right ventricular pressure and ongoing overload 4. Normal right ventricular size and systolic function 5. Grade 2 diastolic dysfunction 6. The left atrium is moderately dilated 7. Moderately elevated right sided pressures; RVSP 56 mmHg 8. No significant valvular abnormalities Adult Echocardiography Procedure Report Left Ventricle LVEDD (3.7 - 5.6 cm): 4.62 cm LVESD (2.2 - 4.0 cm): 3.07 cm LVIVS thickness (0.6 - 1.2 cm): 1.23 cm LVPW thickness (0.5 - 1.0 cm): 1.18 cm e': 0.09 m/s E - e': 10.84 LVOT Max Gradient: 2.74 mm[Hg] LVOT Area (cm2): 0.83 m/s Peak Velocity (LVOT): 0.83 m/s Mean Velocity (LVOT): 0.54 m/s LVOT Diameter 2.39 cm Left Ventricular Ejection Fraction: Left Atrium LA Volume Index (2D A2C): 45.72 ml/m2 Left Atrium Systolic Dimension: 4.81 cm Mitral Valve MV E to A Ratio: 0.92 MV Max Gradient: MV Mean Gradient: Mitral Valve A-Wave Peak Velocity: 1.02 m/s Mitral Valve E-Wave Peak Velocity: 0.94 m/s Cardiovascular Orifice Area: Right Ventricle RV Internal Diastolic Dimension: Aorta AO Root Diam: 3.33 cm Ascending Ao Diam: 2.89 cm Aortic Valve AoV Area (Peak Travis): 2.30 cm2, 2.30 cm2 AoV Area (VTI): 2.56 cm2, 2.56 cm2 Deceleration [place]: Pressure Half-Time: Peak Velocity(Antegrade Flow): 1.61 m/s Peak Gradient(Antegrade Flow): 10.36 mm[Hg] Mean Velocity(Antegrade Flow): 0.98 m/s Mean Gradient(Antegrade Flow): 4.65 mm[Hg] Velocity Time Integral: 33.85 cm Tricuspid Valve Peak Velocity (Regurgitant Flow): 3.22 m/s Peak Velocity: Pulmonic Valve Mean Gradient: 3.23 mm[Hg] Mean Velocity: 0.85 m/s Peak Velocity: 1.25 m/s, 1.18 m/s Peak Gradient: 6.20 mm[Hg], 5.58 mm[Hg] Right Atrium Right Atrium Systolic Pressure: 31.05 ml, 31.05 ml Dictated by: Guilherme Bazan M.D. on 03/03/2025 at 16:01 Approved by: Guilherme Bazan M.D. on 03/03/2025 at 16:06 Dictated By: Guilherme Bazan M.D. Signed By: 03/03/25 1608 DD/ 1607 TD/TT: Girls Swimming Coach: [place] [address] Cardiology Report Signed Patient: TUSHAR HUNG MR#: [id number] : 1955 Acct:[id number] Age/Sex: 69 / F ADM Date: 03/03/25 Loc: CARD Attending Dr: Teodora Unger M.D. Ordering Physician: Kong Unger M.D. Date of Service: 03/03/25 Procedure(s): CA ech o doppler complete Accession Number(s): [id number] cc: Kong Unger M.D. Patient Name: VIVIANA HUNG MR#: [id number] : 1955 Exam Date: 03/03/2025 Ordering Doctor: DR KONG UNGER . ECHOCARDIOGRAM REPORT PROCEDURE: CA ECHO D OPPLER COMPLETE INDICATIONS: Murmur, COPD, hypertension COMPARISON: None. DESCRIPTION: COMPLET E ECHOCARDIOGRAM Real-time transthoracic echocardiography wit h 2D, M-mode, spectral and color flow Doppler performed. QUALITY: Technical q uality was good. LEFT VENTRICLE: Norm al chamber size. Mild concentric left ventricular hypertrophy D-shaped septum consistent with right ventricular pressure and volume overload. LV EF: Global left ventricular systolic function is normal; visually estimated ejection f raction is 55 to 60%. No wall motion abnormalities. DIASTOLIC: Grade II diastolic dysfunction. ATRIAL SEPTUM: Visua lly appears intact. LEFT ATRIUM: Moderat e dilatation. RIGHT ATRIUM: Normal chamber size. RIGHT VENTRICLE: Nor mal chamber size. Normal systolic function. TRICUSPID VALVE: Nor mal mobility and thickness. No stenosis with trivial regurgitation. Doppl er studies reveal moderately (45-60) elevated right sided pressures. RVSP 56 mmHg MITRAL VALVE: Normal mobility and thickness. No evidence of mitral valve stenosis. Moderate, nodular, mitral annular calcification. Trivial mitral regurgitation. AORTIC VALVE: Normal trileaflet appearance. Mildly calcified aortic valve. Normal leaflet mobil ity. No evidence of aortic valve stenosis. No aortic regurgitation. AORTIC ROOT: Normal diameter and appearance. Ascending aorta is normal in size. PULMONIC VALVE: Norm al thickness and mobility. No stenosis. Trivial regurgitation. PERICARDIUM: No evid ence of pericardial effusion. IVC: IVC is dilated (3.1 cm), does not fully collapse. CONCLUSION: 1. Global left ventr icular systolic function is normal; visually estimated ejection fraction is 55 to 60% 2. Mild left ventric ular hypertrophy 3. D-shaped septum consistent with right ventricular pressure and ongoing overload 4. Normal right vent ricular size and systolic function 5. Grade 2 diastolic dysfunction 6. The left atrium i s moderately dilated 7. Moderately elevat ed right sided pressures; RVSP 56 mmHg 8. No significant va lvular abnormalities Adult Echocardiograp hy Procedure Report Left Ventricle LVEDD (3.7 - 5.6 cm) : 4.62 cm LVESD (2.2 - 4.0 cm) : 3.07 cm LVIVS thickness (0.6 - 1.2 cm): 1.23 cm LVPW thickness (0.5 - 1.0 cm): 1.18 cm e': 0.09 m/s E - e': 10.84 LVOT Max Gradient: 2 .74 mm[Hg] LVOT Area (cm2): 0.83 m/s Peak Velocity (LVOT) : 0.83 m/s Mean Velocity (LVOT) : 0.54 m/s LVOT Diameter 2.39 cm Left Ventricular Eje ction Fraction: Left Atrium LA Volume Index (2D A2C): 45.72 ml/m2 Left Atrium Systolic Dimension: 4.81 cm Mitral Valve MV E to A Ratio: 0.92 MV Max Gradient: MV Mean Gradient: Mitral Valve A-Wave Peak Velocity: 1.02 m/s Mitral Valve E-Wave Peak Velocity: 0.94 m/s Cardiovascular Orifi ce Area: Right Ventricle RV Internal Diastoli c Dimension: Aorta AO Root Diam: 3.33 cm Ascending Ao Diam: 2.89 cm Aortic Valve AoV Area (Peak Travis): 2.30 cm2, 2.30 cm2 AoV Area (VTI): 2.56 cm2, 2.56 cm2 Deceleration [place]: Pressure Half-Time: Peak Velocity(Antegr ethel Flow): 1.61 m/s Peak Gradient(Antegr ethel Flow): 10.36 mm[Hg] Mean Velocity(Antegr ethel Flow): 0.98 m/s Mean Gradient(Antegr ethel Flow): 4.65 mm[Hg] Velocity Time Integr al: 33.85 cm Tricuspid Valve Peak Velocity (Regur gitant Flow): 3.22 m/s Peak Velocity: Pulmonic Valve Mean Gradient: 3.23 mm[Hg] Mean Velocity: 0.85 m/s Peak Velocity: 1.25 m/s, 1.18 m/s Peak Gradient: 6.20 mm[Hg], 5.58 mm[Hg] Right Atrium Right Atrium Systoli c Pressure: 31.05 ml, 31.05 ml Dictated by: Guilherme pimentel M.D. on 03/03/2025 at 16:01 Approved by: Guilherme pimentel M.D. on 03/03/2025 at 16:06 Dictated By: Guilherme Hicks M.D. Signed By: 03/03/25 1608 DD/ 1607 TD/TT: Girls Swimming Coach: Reason For Referral Reason folow up colon cance r no scope 3 year dx in 2012 Diagnosis 1 Colon adenocarcinoma (C18.9) Referral Organization [facility] Referring Provider First Name Garrett Referring Provider Last Name Lina Referring Provider Speciality Family Med ernst Referred Provider Girma Huffman Referred Provider Specialty General Surg edith Referral Priority Routine Medications Medication SIG (Take, Route, Frequency, Duration) Notes Start Date End Date Status hydrOXYzine HCl 25 MG 1 tablet as needed Orally BID for 30 days 11/21/2024 Active Metoprolol Succinate ER 25 MG TAKE 1 TABLET BY MOUTH EVERY DAY FOR 90 DAYS for 90 Active Albuterol Sulfate (2.5 MG/3ML) 0.083% 3 mL as needed Inhalation every 6 hrs for 7 days 12/12/2024 Active predniSONE 20 MG 3 tablets Orally Onc e a day for 5 days 03/22/2025 Active Lasix 20 MG 1 tablet Orally Once a day for 30 days 03/13/2025 Active levoFLOXacin 750 MG 1 tablet Orally Once a day for 10 day(s) 03/22/2025 Active Benzonatate 200 MG 1 capsule Orally Thr ee times a day for 7 days 03/22/2025 Active Trelegy Ellipta 100-62.5-25 MCG/ACT 1 puff Inhalation Once a day 12/19/2024 Active Ventolin HFA 108 (90 Base) MCG/ACT 2 puff as needed Inhalation every 4 hrs 03/22/2025 Active Albuterol Sulfate HFA 108 (90 Base) MCG/ACT 1 puff as needed Inhalation every 4 hrs 12/19/2024 Active Pristiq 50 MG 1 tablet Orally Once a day for 30 days 03/13/2025 Active Zjshhgeqg-Anqcqalh-ZU 30-2-10 MG/5ML 5 ml Orally every 6 hours prn for 7 days PRN 12/08/2024 Active Buprenorphine HCl-Naloxone HCl 8-2 MG 1 film under the tongue and allow to dissolve Sublingual bid for 28 days Meilie Frederic Active Gabapentin 300 MG TAKE 1 CAPSULE BY MOUTH TWICE A DAY FOR 30 DAYS for 30 Active predniSONE 10 MG 5 tabs per day for 3 days, 4 tabs per day for 3 ays, 3 tabs perday for 3 days, 2 tabs per day for 3 days, 1 tab a day for 3 days, 1/2 tab a day for 4 days Orally Once a day for 19 days 03/27/2025 Active Amoxicillin-Pot Clavulanate 875-125 MG 1 tablet Orally every 12 hrs for 10 days 03/27/2025 Active Social History Tobacco Use: Social History Observation Description Date Details (start date - stop date) Current Smoker 04/21/1974 - NA Tobacco Control (Standard) Question Answer Notes Tobacco use: Current smoker When did you start smoking? 04/21/1974 AUDIT-C (Standard) Question Answer Notes Did you have a drink containing alcohol in the p ast year? No Points 0 Interpretation Negative Problems Problem Type SNOMED Code ICD Code Onset Dates Problem Status W/U Status Risk Notes Problem Rheumatoid arthritis (25839881) Rheumatoid arthritis (M06.9) Active confirmed Problem COPD - Chronic obstructive pulmonary disease (60861826) COPD (chronic obstructive pulmonary disease) (J44.9) Active confirmed Problem Hypertension (66120928) HTN (hypertension) (I10) Active confirmed Problem Arthritis (3225260) Arthritis (M19.90) Active confirmed Problem Peripheral neuropathy (130786963) Peripheral neuropathy (G62.9) Active confirmed Problem Osteoporosis (26244404) Osteoporosis (M81.0) Active confirmed Problem Malignant tumor of colon (222456091) Colon cancer (C18.9) Active confirmed Problem Petechiae (16045354) Petechiae (R23.3) Active confirmed Problem Mixed anxiety and depressive disorder (139203279) Anxiety and depression (F41.9) Active confirmed Problem Malignant neoplasm of colon (812347856) Colon adenocarcinoma (C18.9) Active confirmed Vital Signs Heart Rate 89 /min 03/22/2025 Temperature 98.6 degrees Fahrenheit 03/27/2025 Oximetry 95 % 03/27/2025 Blood pressure diastolic 130 mm Hg 03/27/2025 Height 66 in 03/27/2025 Blood pressure systolic 220 mm Hg 03/27/2025 Weight 173.6 lbs 03/27/2025 BMI 28.02 kg/m2 03/27/2025 Procedures Procedure Date Ordered Date Performed Result Body Sit e CARDIO Echocardiogram 01/09/2025 N/A Encounters Encounter Location Date Provider Diagnosis [address] [address] 10/14/2024 augusto Canales Anxiety and depressi on F41.9 ; Cough R05.9 and HTN (hypertension) I10 [address] [address] 01/09/2025 Garrett Hoy COPD (chronic obstructive pulmonary disease) J44.9 ; HTN (hypertension) I10 and Murmur R01.[address] [address] 03/07/2025 Garrett Hoy HTN (hypertension) I [address] [address] 06/15/2024 Pamela Canales Left leg pain M79.[address] [address] 07/05/2024 Pamela Canales Arthritis M19.[address] [address] 11/21/2024 Pamela Canales Anxiety and depressi on F41.9 and HTN (hypertension) I10 [address] [address] [address] 12/19/2024 Pamela Canales COPD (chronic obstructive pulmonary disease) J44.9 ; Thrush B37.0 ; Yeast infection B37.9 ; HTN (hypertension) I10 and Edema R60.[address] [address] 12/08/2024 augusto Canales Bronchitis J40 [address] [address] 03/13/2025 Garrett Hoy Petechiae R23.3 and Colon adenocarcinoma C18.[address] [address] 03/22/2025 Garrett Hoy Acute bronchitis, unspecified organism J20.9 [facility] [address] [place] [place] [address] 03/27/2025 Garrett Lina Acute bronchitis, unspecified organism J20.9 [facility] [address] [place] [place] [address] 06/16/2024 Pamela Canales [facility] [address] [place] [place] [address] 07/12/2024 Pamela Canales [facility] [address] [place] [place] [address] 12/08/2024 Pamela Canales [facility] [address] [place] [place] [address] 12/12/2024 Pamela Canales Bronchitis J40 [facility] [address] [place] [place] [address] 12/12/2024 Pamela Canales [facility] [address] [place] [place] [address] 01/09/2025 Garrett Unger [facility] [address] [place] [place] [address] 01/11/2025 Garrett Mijaresmian [facility] [address] [place] [place] [address] 01/11/2025 Garrett Unger [facility] [address] [place] [place] [address] 01/17/2025 Pamela Canales [facility] [address] [place] [place] [address] 03/04/2025 Garrett Lina [facility] [address] [place] [place] [address] 03/16/2025 Garrett Unger Anxiety and depressi on F41.9 Assessments Encounter Date Diagnosis (ICD Code) Assessment Notes Treatment Notes Treatment Clinical Notes Section Notes 06/15/2024 Left leg pain (ICD-10 - M79.605) 07/05/2024 Arthritis (ICD-10 - M19.90) IM injections here xray left foot does not want fu rheum 11/21/2024 Anxiety and depression (ICD-10 - F41.9) fu one month discussed abstaining from alcohol beth CASANOVA is in counseling she states 12/19/2024 COPD (chronic obstructive pulmonary disease) (ICD-10 - J44.9) 10/14/2024 Anxiety and depression (ICD-10 - F41.9) continue counseling fu one month restart walking regimen 10/14/2024 Cough (ICD-10 - R05.9) hx copd still smoking 12/19/2024 Thrush (ICD-10 - B37.0) 12/08/2024 Bronchitis (ICD-10 - J40) smoker flu and covid neg ER if needed, monitor pulse ox fu if not improving monitor pulse ox rest, push fluids requesting refill on cough med that only thing to help her cough 01/09/2025 COPD (chronic obstructive pulmonary disease) (ICD-10 - J44.9) 01/09/2025 HTN (hypertension) (ICD-10 - I10) 03/07/2025 HTN (hypertension) (ICD-10 - I10) 03/13/2025 Petechiae (ICD-10 - R23.3) 03/13/2025 Colon adenocarcinoma (ICD-10 - C18.9) follow up scope Dx in 201103/22/2025 Acute bronchitis, unspecified organism (ICD-10 - J20.9) Rest and drink more liquids, especially water. You may use a humidifier or vaporizer to help keep the drainage moist. Wkaq-tsr-arswasy Nasal Saline may help the stuffy and runny nose. Use Ibuprofen and or Tylenol as needed for fever, chills, body aches or pain. Children 5 years old should not be given zcrb-qys-yxnppmy cough and cold medications such as guaifenesin and dextromethorphan. If you're over age 5, you may try lxlr-lrd-qdpkybu cold medications such as guaifenesin and dextromethorphan, [...] to the emergency room or call 911 03/27/2025 Acute bronchitis, unspecified organism (ICD-10 - J20.9) Rest and drink more liquids, especially water. You may use a humidifier or vaporizer to help keep the drainage moist. Wuel-wjq-idywsod Nasal Saline may help the stuffy and runny nose. Use Ibuprofen and or Tylenol as needed for fever, chills, body aches or pain. Children 5 years old should not be given lwse-exq-lzqlrdp cough and cold medications such as guaifenesin and dextromethorphan. If you're over age 5, you may try uydl-evl-qqtdpet cold medications such as guaifenesin and dextromethorphan, [...] to the emergency room or call 911 12/12/2024 Bronchitis (ICD-10 - J40) 03/16/2025 Anxiety and depression (ICD-10 - F41.9) 12/19/2024 Yeast infection (ICD-10 - B37.9) 11/21/2024 HTN (hypertension) (ICD-10 - I10) take meds routinely bp check 1 month 10/14/2024 HTN (hypertension) (ICD-10 - I10) has not been taking BP meds routinely did not take today encouraged compliance, fu BP check after 2 weeks on 12/19/2024 HTN (hypertension) (ICD-10 - I10) encouraged to take BP meds routinely, has not been continue monitor 01/09/2025 Murmur (ICD-10 - R01.1) 12/19/2024 Edema (ICD-10 - R60.9) take HCTZ continue monitor elevate feet Plan Of Treatment Pending Test Test Name Order Date CARDIO Echocardiogram 01/09/2025 BNP 03/27/2025 CBC AUTO DIFF 03/27/2025 CULTURE SPUTUM 03/27/2025 PROF 14(COMP METB) 03/27/2025 SPUTUM GRAM STAIN 03/27/2025 THYROID PROFILE WITH TSH 01/09/2025 US CATHIE DOP LEG LT 06/15/2024 XR CHEST 2 V 01/09/2025 XR CHEST 2 V 03/27/2025 XR chest 2V 12/08/2024 Insurance Providers Payer Name Payer Address Payer Phone Subscriber Number Group Number Insured Name Patient Relationship to Insured Coverage Start Date Coverage End Date [employer] [facility] [employer] [address] [place] [phone] [id number] Viviana Hung Self - patient is the insured Medications Administered Medication Instructions Date of Administration Dosage Notes Dexamethasone, 4mg/mL 07/05/2024 8 mg 8 Dexamethasone, 4mg/mL 12/08/2024 12 mg 12 Ketorolac Tromethamine 07/05/2024 60 mg 60 Medical (General) History Medical History History ICD Code Colon cancer C18.9 Arthritis M19.90 Anxiety F41.9 COPD (chronic obstructive pulmonary dise ase) J44.9 Depression F32.A Osteoporosis M81.0 Surgical History Surgery Date(Month/Year) colon resection Gallbladder YASIR Hospitalization History Reason Date(Month/Year) denies
--- OUTSIDE RECORDS SUMMARY | 2025-05-02 10:36 | XMS_ITS | Clinical Summary ---
Author Organization [facility] Address [address] [facility] [place] [address] Care Team Providers Care Sales Promoter Name Role Phone Zak Rivas MD Primary Care Provider [phone] Doreen Garcia NP Unavailable [phone] Social History Tobacco Use Types Packs/Day Years Used Date Smoking Tobacco: Never Assessed Comments Unknown Sex and Gender Information Value Date Recorded Sex Assigned at Not on file Legal Sex Female 7:10 PM EDT Gender Identity Not on file Sexual Orientation Not on file Plan of Treatment Health Maintenance Due Date Last Done Comments CT Colonography 1956 Colonoscopy 1956 Colorectal Cancer Screening 1956 FIT-DNA 1956 FIT 1956 FOBT 1955 Medicare Annual Wellness (AWV) 1956 Sigmoidoscopy 1956 Mammogram 1996 Pneumococcal Vaccine: 65+ Years (1 of 1 - PCV) 006 Influenza Vaccine (#1) 2025 Insurance MEDICARE [facility] Care Teams Sales Promoter Relationship Specialty Start Date End Date Zak Rivas MD PCP - General Family Medicine 05/15/23 Doreen Garcia NP [address] [place] [address] Nurse Practitioner Family Medicine 05/15/23
== END 2025-05-02 10:34 | disposition home or self-care (01) ==
LOC: PST 10:34
PROVIDERS: PCP Family Medicine; Visit Provider Surgery
DX: Z01.818 Encounter for other preprocedural examination (principal); Z86.0101 Personal history of adenomatous and serrated colon polyps; Z12.11 Encounter for screening for malignant neoplasm of colon; Z85.038 Personal history of other malignant neoplasm of large intestine